=== PATIENT | male | born 1960 | race Caucasian/White ===

== ENCOUNTER 2022-03-21 09:35 | Emergency (ER) | payer BC, SELFPAY ==
--- NOTE | 2022-03-21 | ECG_ITS ---
Test Reason : chest pain Blood Pressure : / mmHG Vent. Rate : 088 BPM Atrial Rate : 088 BPM P-R Int : 136 ms QRS Dur : 090 ms QT Int : 416 ms P-R-T Axes : 058 008 061 degrees QTc Int : 503 ms Normal sinus rhythm Anterior infarct , age undetermined Prolonged QT Abnormal ECG No previous ECGs available Referred By: Generic ED Physician Electronically Signed By:Jose Martin Arango
--- NOTE | ~2022-03-21 | XR_ITS ---
EXAMINATION: XR CHEST CLINICAL INFORMATION: Chest pain and dyspnea. COMPARISON: None TECHNIQUE: Frontal view of the chest was obtained. FINDINGS: Mild prominence of pulmonary vascular and interstitial markings with asymmetric increased markings in the right infrahilar region. The heart and mediastinal structures are unremarkable. XR/XR chest 1V IMPRESSION: Asymmetric increased markings in right parietal region suggesting atelectasis/infiltrate. Mild underlying congestion cannot be excluded.
[2022-03-21 09:42] VITALS: BP 118/77; PULSE 91; RESP 20; TEMP 36.7; O2SAT 95; BMI 29.0
[2022-03-21 10:14] VITALS: BP 117/76; PULSE 98; RESP 22; O2SAT 97
[2022-03-21 10:20] LABS: MANUAL DIFF FLAG NO
[2022-03-21 10:23] LABS: Basophils Absolute Auto 0.1 X10*3/uL (0.0-0.2); Basophils Percent Auto 0.8 % (0-2); Eosinophils Absolute Auto 0.2 X10*3/uL (0.0-0.4); Hematocrit 38.8 % (42.0-52.0); Imm Gran Abs Auto 0.01 X10*3/uL (0.00-0.03); Imm Gran Pct Auto 0.1 % (0.0-0.4); Lymphocytes Absolute Auto 1.6 X10*3/uL (1.2-4.9); Lymphocytes Percent Auto 20.8 % (20-40); Mean Corpuscular HGB Conc 33.5 g/dl (31.0-36.0); Mean Corpuscular Hemoglobin 30.6 pg (27.0-33.0); Mean Corpuscular Volume 91.3 fL (80.0-98.0); Monocytes Absolute Auto 0.7 X10*3/uL (0.1-1.2); Monocytes Percent Auto 8.7 % (2-11); Neutrophils Absolute Auto 5.1 x10*3/uL (2.0-8.3); Neutrophils Percent Auto 66.6 % (45-73); Platelet Count 158 X10*3/uL (160-400); Red Blood Count 4.25 X10*6/uL (4.60-5.80); Red Cell Distribution Width 13.8 % (11.0-16.0); White Blood Count 7.7 X10*3/uL (4.8-10.8)
[2022-03-21 10:38] LABS: Anion Gap 11 (12-20); Blood Urea Nitrogen 12 mg/dL (9-16); Calcium 9.1 mg/dL (8.4-10.2); Carbon Dioxide 24 mmol/L (22-29); Chloride 109 mmol/L (96-108); Creatinine Clr Calc Pharmacy 109.2; Estimated Glomerular Filt Rate > 60; Glucose Random 94 mg/dL (60-115); Potassium 4.3 mmol/L (3.3-5.1); Sodium 140 mmol/L (135-145)
[2022-03-21 10:46] LABS: Troponin-I High Sensitivity 13.3 ng/L (<3.5-35.0)
[2022-03-21 10:53] VITALS: BP 112/80; PULSE 82; RESP 20; O2SAT 97
--- NOTE | 2022-03-21 11:03 | ED_ITS ---
HPI - Chest Pain General Chief Complaint: Chest Pain Stated Complaint: diff breathing; chest pain Time Seen by Provider: 03/21/22 11:00 Source: patient Mode of arrival: ambulatory Limitations: no limitations History of Present Illness HPI narrative: 61-year-old male came in for evaluation of shortness of breath and chest pain for 3 days. Been having shortness of breath and coughing with green sputum, no fever or chills, no sick contact patient work in the [employer] 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 No fever, no chills, no lower extremity swelling or tenderness. Related Data Previous Rx's Medication Instructions Recorded albuterol sulfate 90 mcg/actuation 2 inh inhalation Q6H PRN shortness 03/21/22 breath activated powder inhaler of breath or wheezing #1 ea levofloxacin 750 mg tablet 750 mg PO DAILY #7 tabs 03/21/22 prednisone 20 mg tablet 20 mg PO BID #10 tabs 03/21/22 Allergies Allergy/AdvReac Type Severity Reaction Status Date / Time No Known Allergies Allergy Verified 03/21/22 09:45 Review of Systems Review of Systems: All other systems are reviewed and are negative Constitutional: Reports as per HPI and Reports no additional constitutional complaints Eyes: Reports as per HPI and Reports no additional eye complaints Reports system reviewed and no additional complaints, except as documented Cardiovascular: Reports as per HPI and Reports no additional cardiovascular comp laints Respiratory: Reports as per HPI and Reports no additional respiratory complaints Gastrointestinal: Reports as per HPI and Reports no additional gastrointestinal complaints Genitourinary: Reports no additional female genitourinary complaints Musculoskeletal: Reports no additional musculoskeletal complaints Skin/Breast: Reports system reviewed and no additional complaints, except as docu Psychiatric: Reports no additional psychiatric complaints Endocrine: Reports no additional endocrine complaints Hematologic/Lymphatic: Reports no additional hematologic/lymphatic complaints Allergic/Immunologic: Reports no additional allergic/immunologic complaints Reports system reviewed and no additional complaints, except as documented and Reports Abnormal speech present PMFSH Social History Social History Advance Directives: No Advance Directives Information Provided: No Physical Exam Vital Signs: Vital Signs: Last Vital Signs Temp 98.0 F 03/21/22 09:42 Pulse 86 03/21/22 12:16 Resp 12 03/21/22 12:16 BP 108/71 03/21/22 12:16 Pulse Ox 100 03/21/22 12:16 O2 Del Method 03/21/22 12:16 BMI result Body Mass Index 29.0 Vital signs have been reviewed as appeared to be correct. Blood pressure normal. Heart rate normal. Respiration rate normal. Temperature normal. Oxygen saturation normal. Appearance: Alert. Oriented X3. No acute distress. Head: Normal external exam. Normocephalic. Atraumatic. No Piña signs noted. No raccoon eyes noted Eyes: PERRLA. EOMI. Conjunctiva and sclera normal. Eyelids normal. ENT: TM's Normal. Pharynx normal. Uvula midline. Moist mucous membranes. No trismus noted. No drooling noted. No muffled voice noted. Neck: Normal inspection. Neck supple. FROM. No adenopathy. Thyroid Normal. No meningeal signs. No neck mass noted. CVS: Normal heart rate and rhythm. Heart sound normal. No murmurs noted. Pulses normal throughout. Respiratory: No respiratory distress. Painless inspiration. Breath sounds normal. Prolonged expiration with mild diffuse expiratory wheezing. Chest nontender. No accessory muscle usage noted or decreased air movement noted. Abdomen: Soft and nontender. Bowel sounds normal in all 4 quadrants. No distention noted. No organomegaly noted. No visible injury noted. Back: No CVA tenderness. Full range of motion noted. Skin: Skin warm and dry. Normal skin color. Normal skin turgor. No rashes/lesions/lacerations noted. Extremities: No lower extremity edema. Extremities exhibit normal range of motion. Extremities nontender. Neuro: Oriented X 3. Cranial nerve exam: II-XII are grossly intact No motor deficit. No sensory deficit. Reflexes normal. Course Course Course Narrative: 61 years old male long history of smoking came in with coughing, physical exam and blood workup today is consistent with acute bronchitis. Patient feels better with bronchodilator on prednisone, will add Levaquin course for 7 days for possible bronchopneumonia. Patient was educated about quitting smoking. MDM - Chest Pain Lab Data Attestation: I reviewed the patient's lab results. Result diagrams: 03/21/22 10:13 03/21/22 10:13 Labs: Lab Results 03/21/22 03/21/22 03/21/22 Range/Units 10:13 10:13 10:13 WBC 7.7 (4.8-10.8) X10*3/uL RBC 4.25 L (4.60-5.80) X10*6/uL Hgb 13.0 L (14.0-18.0) g/dl Hct 38.8 L (42.0-52.0) % MCV 91.3 (80.0-98.0) fL MCH 30.6 (27.0-33.0) pg MCHC 33.5 (31.0-36.0) g/dl RDW 13.8 (11.0-16.0) % Plt Count 158 L (160-400) X10*3/uL MPV 10.0 (9.4-12.4) fL Immature Gran % (Auto) 0.1 (0.0-0.4) % Neut % (Auto) 66.6 (45-73) % Lymph % (Auto) 20.8 (20-40) % Mcculloch % (Auto) 8.7 (2-11) % Eos % (Auto) 3.0 (0-4) % Baso % (Auto) 0.8 (0-2) % Lymph # (Auto) 1.6 (1.2-4.9) X10*3/uL Mcculloch # (Auto) 0.7 (0.1-1.2) X10*3/uL Eos # (Auto) 0.2 (0.0-0.4) X10*3/uL Baso # (Auto) 0.1 (0.0-0.2) X10*3/uL Abs Immat Gran (auto) 0.01 (0.00-0.03) X10*3/uL Absolute Neuts (auto) 5.1 (2.0-8.3) x10*3/uL Absolute Nucleated RBC 0.000 (0.0-0.012) X10*3/uL Nucleated RBC % (auto) 0.0 (0.0-0.2) /100WBC Sodium 140 (135-145) mmol/L Potassium 4.3 (3.3-5.1) mmol/L Chloride 109 H (96-108) mmol/L Carbon Dioxide 24 (22-29) mmol/L Anion Gap 11 L (12-20) BUN 12 (9-16) mg/dL Creatinine 0.86 (0.5-1.4) mg/dL Estim Creat Clear Calc 109.2 Estimated GFR > 60 Random Glucose 94 (60-115) mg/dL Lactic Acid (0.5-2.0) mmol/L Calcium 9.1 (8.4-10.2) mg/dL Troponin I High Sens 13.3 (<3.5-35.0) ng/L B-Natriuretic Peptide 372 H (<100) pg/mL 03/21/22 Range/Units 11:26 WBC (4.8-10.8) X10*3/uL RBC (4.60-5.80) X10*6/uL Hgb (14.0-18.0) g/dl Hct (42.0-52.0) % MCV (80.0-98.0) fL MCH (27.0-33.0) pg MCHC (31.0-36.0) g/dl RDW (11.0-16.0) % Plt Count (160-400) X10*3/uL MPV (9.4-12.4) fL Immature Gran % (Auto) (0.0-0.4) % Neut % (Auto) (45-73) % Lymph % (Auto) (20-40) % Mcculloch % (Auto) (2-11) % Eos % (Auto) (0-4) % Baso % (Auto) (0-2) % Lymph # (Auto) (1.2-4.9) X10*3/uL Mcculloch # (Auto) (0.1-1.2) X10*3/uL Eos # (Auto) (0.0-0.4) X10*3/uL Baso # (Auto) (0.0-0.2) X10*3/uL Abs Immat Gran (auto) (0.00-0.03) X10*3/uL Absolute Neuts (auto) (2.0-8.3) x10*3/uL Absolute Nucleated RBC (0.0-0.012) X10*3/uL Nucleated RBC % (auto) (0.0-0.2) /100WBC Sodium (135-145) mmol/L Potassium (3.3-5.1) mmol/L Chloride (96-108) mmol/L Carbon Dioxide (22-29) mmol/L Anion Gap (12-20) BUN (9-16) mg/dL Creatinine (0.5-1.4) mg/dL Estim Creat Clear Calc Estimated GFR Random Glucose (60-115) mg/dL Lactic Acid 0.9 (0.5-2.0) mmol/L Calcium (8.4-10.2) mg/dL Troponin I High Sens (<3.5-35.0) ng/L B-Natriuretic Peptide (<100) pg/mL Imaging Data Chest x-ray: Attestation: I personally reviewed and interpreted this imaging study as follows: Radiologist's impression: Asymmetric increased markings in right parietal region suggesting atelectasis/infiltrate. Mild underlying congestion cannot be excluded. ? ECG Data ECG #1: Attestation: I personally reviewed and interpreted this ECG as follows: Interpretation: Normal sinus rhythm at 88 beats per minute, normal axis deviation, QT p rolongation otherwise unremarkable intervals, nonspecific T-wave inversion in V6,III,aVF. Discharge Plan Discharge Clinical Impression: Bronchopneumonia Patient Disposition: Home, Self-Care Instructions: Pneumonia (ED) Prescriptions: New prednisone 20 mg tablet 20 mg PO BID Qty: 10 0RF albuterol sulfate 90 mcg/actuation aerosol powdr breath activated 2 inh inhalation Q6H PRN (Reason: shortness of breath or wheezing) Qty: 1 0RF levofloxacin 750 mg tablet 750 mg PO DAILY Qty: 7 0RF Referrals: Dorcas Benites MD [Primary Care Provider] - Stand Alone Forms: Work/School Release
[2022-03-21] MEDS: Albuterol/Iprat 2.5/0.5MG 3 ML AMPUL.NEB INHALE (11:12)
[2022-03-21] MEDS: Albuterol Sulfate (0.083%) 2.5 MG/3 ML VIAL.NEB 5 MG INHALE (11:12)
[2022-03-21 11:16] VITALS: PULSE 82; RESP 16; O2SAT 97
[2022-03-21] MEDS: predniSONE 20 MG TABLET 40 MG PO (11:27)
[2022-03-21] MEDS: levoFLOXacin 750 MG TABLET PO (11:27)
[2022-03-21 11:29] LABS: B Type Natriuretic Peptide 372 pg/mL (<100)
[2022-03-21 11:52] LABS: Lactic Acid 0.9 mmol/L (0.5-2.0)
[2022-03-21 12:16] VITALS: BP 108/71; PULSE 86; RESP 12; O2SAT 100
== END 2022-03-21 13:17 | disposition home or self-care (01) ==
PROVIDERS: Emergency Provider Emergency Medicine; PCP Family Medicine
DX: J18.0 Bronchopneumonia, unspecified organism (principal); Z87.891 Personal history of nicotine dependence
CPT/HCPCS: 36415; 71045; 80048; 83605; 83880; 84484; 85025; 87040; 93005; 94640; 94644; 99283; 99284

== ENCOUNTER 2022-12-19 09:09 | Inpatient (IN) | payer BC, SELFPAY ==
[2022-12-19] VITALS (8 sets, daily range): BP systolic 113–136; BP diastolic 76–83; PULSE 85–95; RESP 18–32; TEMP 36.3–36.6; O2SAT 95–100; BMI 24.6; BMI 24.2
--- NOTE | ~2022-12-19 | CT_ITS ---
EXAMINATION: CT chest wo IV con. CLINICAL INFORMATION: Reason for Exam ? chf vs pneumonia COMPARISON: No prior CT available for comparison. TECHNIQUE: Multidetector volumetric CT imaging of the chest was done. Axial MIP volume rendering provided. Sagittal and coronal reformatted images were obtained. This CT examination was performed using dose optimization techniques as appropriate, variously including the following: *Automated exposure control *Adjustment of mA and/or kV according to patient size (this includes techniques or standardized protocols for targeted exams where dose is matched to indication/reason for exam; i.e. extremities or head) *Use of iterative reconstruction technique CONTRAST: Noncontrasted study. DLP: 345 mGy-cm FINDINGS: BASTING PULLER: LINES/TUBES: Transit Specialist reviewed, no lines. LUNGS: Lung parenchyma: There is a prominence of the pulmonary vasculature. Mild central and peripheral paraseptal emphysema. This has involved upper more than lower lobes. There is compression atelectasis at lower lobe due to adjacent pleural effusions right more than left. Lung nodules/masses: There are no significant lung nodules. AIRWAYS: Trachea and bronchi are normal. PLEURA: Bilateral pleural effusions right more than left. MEDIASTINUM AND BLAISE: Mildly prominent mediastinal lymph nodes some of which are borderline enlarged, pretracheal lymph node is 1.4 x 2 cm could be reactive. No mediastinal mass. VESSELS: HEART AND PERICARDIUM: Thoracic aorta is normal in size. Heart is normal in size. No pericardial effusion. There are few coronary calcifications. Pulmonary arteries are normal in size. LOWER NECK, AXILLA: The visualized thyroid gland is unremarkable. No axillary mass or adenopathy. VISUALIZED ABDOMEN: Unremarkable CHEST WALL AND BONES: No chest wall mass. The visualized bony thorax is within normal limits. CT/CT chest wo IV con IMPRESSION: * Bilateral pleural effusions right more than left. * Compressive atelectasis at lower lobes due to adjacent pleural effusions right more than left. * Mild pulmonary vascular congestion. * Mild foote lobar central and peripheral paraseptal emphysema. * Mildly prominent mediastinal lymph nodes some of which are borderline enlarged, could be reactive. * Mild coronary calcification.
--- NOTE | ~2022-12-19 | XR_ITS ---
EXAMINATION: XR CHEST CLINICAL INFORMATION: Question pneumonia COMPARISON: X-ray 03/21/2022 TECHNIQUE: Frontal view of the chest was obtained. FINDINGS: Stable cardiac and mediastinal silhouette. Stable central vascular prominence. There is increased interstitial markings, with hazy airspace opacities in the right infrahilar region and right lower lung. No significant effusion. XR/XR chest 1V IMPRESSION: Findings in the right infrahilar region and right lower lung, concerning for atelectasis/infiltrate. Component of mild asymmetric pulmonary edema cannot be excluded.
--- OUTSIDE RECORDS SUMMARY | 2022-12-19 09:29 | XMS_ITS | Continuity of Care Document ---
:1960 Author Organization [facility] Address [address] [place] [id number] Care Team Providers Name Role Phone Ector VAZQUEZ, Bennett Cuenca Primary Care Physician Encounter [facility] Date(s): 10/10/21 - 11/15/[address] [id number] Attending Physician: Solitario eMndoza MD Admitting Physician: Solitario Mendoza MD Referring Physician: Solitario Mendoza MD
--- NOTE | 2022-12-19 09:44 | ECG_ITS ---
Test Reason : SOB Blood Pressure : / mmHG Vent. Rate : 088 BPM Atrial Rate : 088 BPM P-R Int : 146 ms QRS Dur : 082 ms QT Int : 368 ms P-R-T Axes : 076 -31 098 degrees QTc Int : 445 ms Artifact in tracing Sinus rhythm with occasional Premature ventricular complexes Left axis deviation Low voltage QRS Cannot rule out Anterior infarct (cited on or before 21-MAR-2022) Abnormal ECG When compared with ECG of 21-MAR-2022 09:37, Premature ventricular complexes are now Present QT has shortened Referred By: Zoltan Hernandez Electronically Signed By:JOSE DE JESUS HOGAN
--- NOTE | 2022-12-19 09:45 | PC.NURSE ---
assumed care of patient, pt pw SOB x3 days and inability to sleep for 2 days. pt was recently dx with PNA and fiinished antibiotics. pt satting 98% on RA, VSS.
--- NOTE | 2022-12-19 10:00 | PC.NURSE ---
Labs drawn and sent, EKG done, PA at bedside
--- NOTE | 2022-12-19 10:17 | ED_ITS ---
HPI - General Adult General Chief complaint: Dyspnea Stated complaint: Diff breathing Time Seen by Provider: 12/19/22 09:44 Source: patient Mode of arrival: ambulatory Limitations: no limitations History of Present Illness HPI narrative: 62-year-old male with history of high cholesterol presents to the ED for sh ortness of breath on exertion the past 3 weeks. Patient states 3 weeks ago he was diagnosed as pneumonia and since then he has been having shortness of breath with chest tightness. patient denies chest pain, leg swelling, calf pain, coughing up blood, recent long travel, recent surgery, fever, history of blood clots, estrigeb ysed or chills. Patient cough is dry. Related Data Home Medications Medication Instructions Recorded Confirmed atorvastatin 40 mg tablet 1 tab PO DAILY 12/19/22 12/19/22 guaifenesin 1,200 mg tablet, 1,200 mg PO Q12H PRN 12/19/22 12/19/22 extended release 12 hr (Mucinex) Cough/congestion Previous Rx's Medication Instructions Recorded albuterol sulfate 90 mcg/actuation 2 inh inhalation Q6H PRN shortness 03/21/22 breath activated powder inhaler of breath or wheezing #1 ea Allergies Allergy/AdvReac Type Severity Reaction Status Date / Time No Known Allergies Allergy Verified 12/19/22 09:17 Review of Systems Review of Systems: shortness of breath Yes all other systems are reviewed and are negative [facility] Past Medical History Medical History (Updated 12/19/22 @ 14:56 by SEBASTIAN Akers) Seizure Social History Social History Advance Directives: Yes Advance Directives Information Provided: No Advance Directives on File: No Physical Exam ED Vital Signs: Vital Signs - 24 hr 12/19/22 09:12 12/19/22 10:43 12/19/22 11:51 Pulse Rate 85 85 86 Respiratory Rate 18 32 H Blood Pressure 122/81 113/76 Pulse Oximetry 97 95 Oxygen Delivery Method Room Air Room Air BMI result Body Mass Index 24.6 Const General: cooperative, healthy appearing, comfortable, no acute distress, well developed, alert, awake and Physically active Orientation/consciousness: oriented to person, oriented to place, oriented to time and patient oriented x3 HENMT Head: Yes normal to inspection, Yes No palpable skull fracture present, Yes normocephalic, Yes atraumatic and No abrasion Eyes General: appearance normal, both eyes and all related structures Neck Neck: Yes normal visual inspection, Yes full ROM, Yes no lymphadenopathy, Yes no meningeal signs, Yes trachea midline, Yes supple, No anterior neck swelling and No tender Chest Chest palpation & inspection: normal inspection of the chest and normal palpation of entire chest wall Resp Effort & Inspection: normal respiratory effort and able to speak in complete sentences Auscultation: clear to auscultation bilaterally Cardio Jugular venous distension: no JVD Heart sounds: S1 normal heart sound present and S2 normal heart sound present GI Inspection: Yes normal to inspection and No abdominal wall ecchymosis Palpation (GI): Soft to palpation, not firm, nontender, no guarding and not rigid General: No CVA tenderness and Yes no CVA tenderness Back/Spine/Pelvis Back: no CVA tenderness, No CVA tenderness and No back tenderness Skin General skin exam: no rashes or lesions noted and elasticity normal Neuro General: oriented to person, oriented to place, oriented to time, patient oriented x3, gait normal, tone normal, moves all extremities, Normal light touch and pain sensation, no meningeal signs, no focal motor deficits and CN's II-XI intact bilaterally Extrem Other: a bilateral lower extremities negative for swelling, pitting edema, or calf tenderness General: Yes normal to inspection and Yes full ROM Psych Appearance: grossly normal, well kempt and not disheveled Course Course Course Narrative: patient vital signs stable but due to AH with cardiac evaluation which include EKG troponin BMP coags and chest x-ray. SARS ordered Reevaluation(s) Reevaluation #1: patient's BNP came back over 1000 which is new. chest x-ray shows pulmonary edema versus pneumonia. O2 saturation above 97% on ambulation but patient still so short of breath on exertion. patient received Lasix. Patient admitted to the hospital for new onset congestive heart failure. Time: 14:49 Reevaluation #2: Dr. Feliz WIll treat patient as CHF exacerbation Time: 15:00 Medications Administered Generic Name Dose Route Start Last Admin Trade Name Freq PRN Reason Stop Dose Admin Enoxaparin Sodium 40 mg 12/19/22 14:00 12/19/22 13:39 Enoxaparin Sodium 40 Mg/0.4 Ml Syringe SUBCUT Not Given Q24H BIENVENIDO Sodium Chloride 3 ml 12/19/22 16:00 12/19/22 13:39 0.9 % Sodium Chloride Flush 3 Ml Syringe IVFLUSH 3 ml QSHIFT BIENVENIDO Administration Discontinued Medications Generic Name Dose Route Start Last Admin Trade Name Ana Maria PRN Reason Stop Dose Admin Albuterol Sulfate 2.5 mg 12/19/22 09:59 12/19/22 11:49 Albuterol Sulfate (0.083%) 2.5 Mg/3 Ml Vial.Neb INHALE 12/19/22 10:00 2.5 mg ONCE ONE Administration Furosemide 40 mg 12/19/22 10:51 12/19/22 10:57 Furosemide 40 Mg/4 Ml Vial IVPUSH 12/19/22 10:52 40 mg STAT STA Administration Protocol Nicotine 21 mg 12/19/22 13:37 12/19/22 13:39 Nicotine 21 Mg Patch.[id number] TRANSDERMA 12/19/22 13:38 21 mg ONCE ONE Administration Medical Decision Making Medical Decision Making MDM Narrative: 62 year yold male with past medical history of cholesterol presents to ED for shortness of breath on exertion for 3 weeks. Patient recently treated for pneumonia 3 weeks ago but still having symptoms. Patient had cardiac evaluation. Differential Diagnosis Differential Diagnoses: The differential diagnosis associated with the presentation includes ( Congestive heart failure, myocardial infarction, pneumonia,) Admission/Observation Consideration of admission/observation: Escalation of care including admiss ion/observation considered Consult Healthcare Provider Management of the patient was discussed with: Hospitalist (Dr. Feliz) Lab Data 12/19/22 09:52 12/19/22 09:52 Labs: Lab Results 12/19/22 12/19/22 12/19/22 Range/Units 09:52 09:52 09:52 WBC (4.8-10.8) X10*3/uL RBC (4.60-5.80) X10*6/uL Hgb (14.0-18.0) g/dl Hct (42.0-52.0) % MCV (80.0-98.0) fL MCH (27.0-33.0) pg MCHC (31.0-36.0) g/dl RDW (11.0-16.0) % Plt Count (160-400) X10*3/uL MPV (9.4-12.4) fL Immature Gran % (Auto) (0.0-0.4) % Neut % (Auto) (45-73) % Lymph % (Auto) (20-40) % Brantley % (Auto) (2-11) % Eos % (Auto) (0-4) % Baso % (Auto) (0-2) % Lymph # (Auto) (1.2-4.9) X10*3/uL Brantley # (Auto) (0.1-1.2) X10*3/uL Eos # (Auto) (0.0-0.4) X10*3/uL Baso # (Auto) (0.0-0.2) X10*3/uL Abs Immat Gran (auto) (0.00-0.03) X10*3/uL Absolute Neuts (auto) (2.0-8.3) x10*3/uL Absolute Nucleated RBC (0.0-0.012) X10*3/uL Nucleated RBC % (auto) (0.0-0.2) /100WBC PT (10.0-13.1) SEC INR (0.9-1.1) APTT (26.0-36.4) SEC Sodium 140 (135-145) mmol/L Potassium 4.8 (3.3-5.1) mmol/L Chloride 112 H (96-108) mmol/L Carbon Dioxide 20 L (22-29) mmol/L Anion Gap 13 (12-20) BUN 17 H (9-16) mg/dL Creatinine 0.90 (0.5-1.4) mg/dL Estim Creat Clear Calc 93.7 Estimated GFR > 60 Random Glucose 101 (60-115) mg/dL Calcium 8.9 (8.4-10.2) mg/dL Total Bilirubin 1.4 H (0.0-1.0) mg/dL AST 50 H (5-37) U/L ALT 118 H (0-40) U/L Alkaline Phosphatase 101 (39-117) U/L Troponin I High Sens 18.1 (<3.5-35.0) ng/L B-Natriuretic Peptide 1284 H (<100) pg/mL Total Protein 6.2 L (6.5-8.0) g/dL Albumin 4.0 (3.5-5.0) g/dL Procalcitonin 0.03 ng/mL Influenza Type A (PCR) (Negative) Influenza Type B (PCR) (Negative) RSV RNA Qual (PCR) (Negative) SARS-CoV-2 RNA (RT-PCR) (Negative) 12/19/22 12/19/22 12/19/22 Range/Units 10:57 10:57 10:57 WBC 7.6 (4.8-10.8) X10*3/uL RBC 4.24 L (4.60-5.80) X10*6/uL Hgb 13.5 L (14.0-18.0) g/dl Hct 39.8 L (42.0-52.0) % MCV 93.9 (80.0-98.0) fL MCH 31.8 (27.0-33.0) pg MCHC 33.9 (31.0-36.0) g/dl RDW 14.2 (11.0-16.0) % Plt Count 110 L D (160-400) X10*3/uL MPV 11.0 (9.4-12.4) fL Immature Gran % (Auto) 0.3 (0.0-0.4) % Neut % (Auto) 63.2 (45-73) % Lymph % (Auto) 25.2 (20-40) % Brantley % (Auto) 8.7 (2-11) % Eos % (Auto) 1.7 (0-4) % Baso % (Auto) 0.9 (0-2) % Lymph # (Auto) 1.9 (1.2-4.9) X10*3/uL Brantley # (Auto) 0.7 (0.1-1.2) X10*3/uL Eos # (Auto) 0.1 (0.0-0.4) X10*3/uL Baso # (Auto) 0.1 (0.0-0.2) X10*3/uL Abs Immat Gran (auto) 0.02 (0.00-0.03) X10*3/uL Absolute Neuts (auto) 4.8 (2.0-8.3) x10*3/uL Absolute Nucleated RBC 0.000 (0.0-0.012) X10*3/uL Nucleated RBC % (auto) 0.0 (0.0-0.2) /100WBC PT 15.2 H (10.0-13.1) SEC INR 1.3 H (0.9-1.1) APTT 31.2 (26.0-36.4) SEC Sodium (135-145) mmol/L Potassium (3.3-5.1) mmol/L Chloride (96-108) mmol/L Carbon Dioxide (22-29) mmol/L Anion Gap (12-20) BUN (9-16) mg/dL Creatinine (0.5-1.4) mg/dL Estim Creat Clear Calc Estimated GFR Random Glucose (60-115) mg/dL Calcium (8.4-10.2) mg/dL Total Bilirubin (0.0-1.0) mg/dL AST (5-37) U/L ALT (0-40) U/L Alkaline Phosphatase (39-117) U/L Troponin I High Sens (<3.5-35.0) ng/L B-Natriuretic Peptide (<100) pg/mL Total Protein (6.5-8.0) g/dL Albumin (3.5-5.0) g/dL Procalcitonin ng/mL Influenza Type A (PCR) NEGATIVE (Negative) Influenza Type B (PCR) NEGATIVE (Negative) RSV RNA Qual (PCR) NEGATIVE (Negative) SARS-CoV-2 RNA (RT-PCR) NEGATIVE (Negative) Independent Interpretation I performed an independent interpretation of an: EKG ( sinus rhythm with PVCs. Ventricular rate 88 DE interval 146. QRS 82. QTC 445. Negative STEMI) and Plain X-Ray Discharge Plan Discharge Clinical Impression: Acute CHF Patient Disposition: Admitted As Inpatient
[2022-12-19 10:20] LABS: Alanine Aminotransferase 118 U/L (0-40); Alkaline Phosphatase 101 U/L (39-117); Anion Gap 13 (12-20); Aspartate Amino Transferase 50 U/L (5-37); Bilirubin Total 1.4 mg/dL (0.0-1.0); Blood Urea Nitrogen 17 mg/dL (9-16); Calcium 8.9 mg/dL (8.4-10.2); Carbon Dioxide 20 mmol/L (22-29); Chloride 112 mmol/L (96-108); Creatinine Clr Calc Pharmacy 93.7; Estimated Glomerular Filt Rate > 60; Glucose Random 101 mg/dL (60-115); Potassium 4.8 mmol/L (3.3-5.1); Sodium 140 mmol/L (135-145); Total Protein 6.2 g/dL (6.5-8.0)
[2022-12-19 10:23] LABS: B Type Natriuretic Peptide 1284 pg/mL (<100)
[2022-12-19 10:27] LABS: Troponin-I High Sensitivity 18.1 ng/L (<3.5-35.0)
[2022-12-19] MEDS: Furosemide 40 MG/4 ML VIAL IVPUSH (10:57)
[2022-12-19 11:10] LABS: Basophils Absolute Auto 0.1 X10*3/uL (0.0-0.2); Basophils Percent Auto 0.9 % (0-2); Eosinophils Absolute Auto 0.1 X10*3/uL (0.0-0.4); Eosinophils Percent Auto 1.7 % (0-4); Hematocrit 39.8 % (42.0-52.0); Hemoglobin 13.5 g/dl (14.0-18.0); Imm Gran Abs Auto 0.02 X10*3/uL (0.00-0.03); Imm Gran Pct Auto 0.3 % (0.0-0.4); Lymphocytes Absolute Auto 1.9 X10*3/uL (1.2-4.9); Lymphocytes Percent Auto 25.2 % (20-40); Mean Corpuscular HGB Conc 33.9 g/dl (31.0-36.0); Mean Corpuscular Hemoglobin 31.8 pg (27.0-33.0); Mean Corpuscular Volume 93.9 fL (80.0-98.0); Monocytes Absolute Auto 0.7 X10*3/uL (0.1-1.2); Monocytes Percent Auto 8.7 % (2-11); Neutrophils Absolute Auto 4.8 x10*3/uL (2.0-8.3); Neutrophils Percent Auto 63.2 % (45-73); Platelet Count 110 X10*3/uL (160-400); Red Blood Count 4.24 X10*6/uL (4.60-5.80); Red Cell Distribution Width 14.2 % (11.0-16.0); White Blood Count 7.6 X10*3/uL (4.8-10.8)
[2022-12-19 11:11] LABS: INTERNATIONAL NORM RATIO 1.3 (0.9-1.1); Prothrombin Time 15.2 SEC (10.0-13.1)
[2022-12-19 11:14] LABS: Partial Thromboplastin Time 31.2 SEC (26.0-36.4)
[2022-12-19] MEDS: Albuterol Sulfate (0.083%) 2.5 MG/3 ML VIAL.NEB INHALE (11:49)
[2022-12-19 11:54] LABS: Influenza A PCR NEGATIVE (Negative); Influenza B PCR NEGATIVE (Negative); Resp Syncy Virus RNA Qual PCR NEGATIVE (Negative); SARS COV2 PCR INHOUSE NEGATIVE (Negative)
--- NOTE | 2022-12-19 12:04 | PC.NURSE ---
pt ambulatory sat 98-100%
--- NOTE | 2022-12-19 12:47 | P.HPHOSP_ITS ---
History of Present Illness Date of Service: 12/19/22 Attending physician on admission: Marike Jacobs Chief Complaint: SOB Pt is a 62-year-old male with a PMH significant for?HLD and possible seizure in 2013 who presents to the ED with?increasing SOB with exertion and at rest. Pt's symptoms began 3-4 weeks ago with mostly non-productive cough and SOB. Was diagnosed with pneumonia and prescribed albuterol, levofloxacin, and prednisone. Completed all medications as prescribed. 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 Cough still mostly non-productive. Has chest tightness, mostly associated with coughing and breathing deeply. No lower leg edema. Patient denies fever, chills, nausea, vomiting, diarrhea, abdominal pain. Denies orthopnea, but states he sometimes feels discomfort in his back and/or abdomen when he lays down in just the right position. Pt denies hx of CHF or heart problems. Of note, pt is a current smoker with a 50+ pack-year history of smoking. In the ED patient was afebrile, tachypneic up to 32, satting at 97% on RA. Labs were significant for WBC WNL, platelets of 110, total bilirubin of 1.4, AST 50, ALT 118, BNP elevated at 12 84. CXR showed opacities in the infrahilar region and right lower lung concerning for atelectasis/infiltrate, and possible asymmetric pulmonary edema. EKG demonstrated sinus rhythm with PVCs. Pt was treated with furosemide 40 mg and albuterol. Pt will be admitted to the hospital for treatment and further evaluation of new-onset CHF. Review of Systems Review of Systems: Shortness of breath with exertion and at rest Mostly nonproductive cough Chest tightness Denies lower leg edema No fever, chills, nausea, vomiting, diarrhea Yes all other systems are reviewed and are negative [facility] Medical History (Updated 12/19/22 @ 13:54 by SEBASTIAN King) Seizure Social History Advance Directives: Yes Advance Directives Information Provided: No Advance Directives on File: No Meds Allergies Allergy/AdvReac Type Severity Reaction Status Date / Time No Known Allergies Allergy Verified 12/19/22 09:17 Physical Exam Vital Signs and Narrative: Vital Signs: Last Vital Signs Pulse 86 12/19/22 11:51 Resp 32 H 12/19/22 10:43 BP 113/76 12/19/22 10:43 Pulse Ox 95 12/19/22 10:43 O2 Del Method 12/19/22 10:43 BMI result Body Mass Index 24.6 Constitutional: Alert, in no acute distress. Mental Status: Oriented to person, place and time. Eyes: Pupils are equal, round, and reactive to light. Ear, Nose, and Throat: Oropharynx clear, mucous membranes moist. Ears and nose without deformities. Trachea midline. Respiratory: Diffuse inspiratory and expiratory rhonchi. Cardiovascular: S1, S2 regular. No murmurs, rubs, or gallops. Gastrointestinal: Abdomen soft, non-tender, non-distended. Normal bowel sounds. Neurologic: Cranial nerves II-XII are grossly intact bilaterally. No focal neurological deficits. Moves all extremities spontaneously. Skin: No rashes or lesions noted. Musculoskeletal: No cyanosis or clubbing. Extremities: No edema. Psychiatric: Normal mood and affect. Results Labs 12/19/22 10:57 12/19/22 09:52 Labs: Laboratory Results - last 24 hr 12/19/22 12/19/22 12/19/22 09:52 09:52 09:52 MCV MCH MCHC RDW Plt Count MPV Immature Gran % (Auto) Neut % (Auto) Lymph % (Auto) [place] % (Auto) Eos % (Auto) Baso % (Auto) Lymph # (Auto) [place] # (Auto) Eos # (Auto) Baso # (Auto) Abs Immat Gran (auto) Absolute Neuts (auto) Absolute Nucleated RBC Nucleated RBC % (auto) PT INR APTT Anion Gap 13 Estim Creat Clear Calc 93.7 Estimated GFR > 60 Random Glucose 101 Calcium 8.9 Total Bilirubin 1.4 H AST 50 H ALT 118 H Alkaline Phosphatase 101 Troponin I High Sens 18.1 B-Natriuretic Peptide 1284 H Total Protein 6.2 L Albumin 4.0 Influenza Type A (PCR) Influenza Type B (PCR) RSV RNA Qual (PCR) SARS-CoV-2 RNA (RT-PCR) 12/19/22 12/19/22 12/19/22 10:57 10:57 10:57 MCV 93.9 MCH 31.8 MCHC 33.9 RDW 14.2 Plt Count 110 L D MPV 11.0 Immature Gran % (Auto) 0.3 Neut % (Auto) 63.2 Lymph % (Auto) 25.2 [place] % (Auto) 8.7 Eos % (Auto) 1.7 Baso % (Auto) 0.9 Lymph # (Auto) 1.9 [place] # (Auto) 0.7 Eos # (Auto) 0.1 Baso # (Auto) 0.1 Abs Immat Gran (auto) 0.02 Absolute Neuts (auto) 4.8 Absolute Nucleated RBC 0.000 Nucleated RBC % (auto) 0.0 PT 15.2 H INR 1.3 H APTT 31.2 Anion Gap Estim Creat Clear Calc Estimated GFR Random Glucose Calcium Total Bilirubin AST ALT Alkaline Phosphatase Troponin I High Sens B-Natriuretic Peptide Total Protein Albumin Influenza Type A (PCR) NEGATIVE Influenza Type B (PCR) NEGATIVE RSV RNA Qual (PCR) NEGATIVE SARS-CoV-2 RNA (RT-PCR) NEGATIVE Imaging Radiologist's Impressions: Impressions Chest X-Ray 12/19/22 10:23 IMPRESSION: Findings in the right infrahilar region and right lower lung, concerning for atelectasis/infiltrate. Component of mild asymmetric pulmonary edema cannot be excluded. Assessment and Plan (1) Acute CHF: Status: Acute Plan Pt is a 62-year-old male with a PMH significant for?HLD and possible seizure in 2013 who presents to the ED with?increasing SOB with exertion and at rest. Pt will be admitted to the hospital for treatment and further evaluation of new- onset CHF. New onset CHF Etiology unclear, possibly secondary to recent pneumonia Chest x-ray concerning for possible asymmetric pulmonary edema, elevated BNP of 1284, pt with SOB, nonproductive cough Furosemide 40 mg IV qd Follow lucia Mag, I/O Echocardiogram Cardiology consult Admit to telemetry Question of community-acquired pneumonia Chest x-ray showing for atelectasis vs infiltrates Pt afebrile, no leukocytosis, completed course of azithromycin outpatient Hold on abx for now Check procalcitonin Chest tightness Most likely secondary to CHF, possibly undiagnosed COPD Troponin 18.1, EKG without ST elevations or depressions DuoNebs q4 while awake Transaminitis Mild, likely secondary to acute CHF Pt asymptomatic, not complaining of RUQ pain Follow CMP Nicotine dependence Pt with 50+ pack year history of smoking NRT, transdermal patch Smoking cessation encouraged HLD Continue home meds Full Code Attending:?Dr. Jacobs DVT Prophylaxis: Lovenox Pt will require a hospitalization of at least two nights for treatment and further evaluation of?new onset CHF with IV diuretics. Time Spent With Patient Time: Total time managing care of this patient today ____ minutes. Quality Stroke Does the patient have a stroke diagnosis?: No VTE Prior VTE?: No VTE Risk Level:: Medical - moderate - high VTE Device Contraindication: Treatment Not Indicated VTE Drug Contraindication: N/A - Med Ordered
[2022-12-19] MEDS: 0.9 % Sodium Chloride Flush 3 ML SYRINGE IVFLUSH ×2 (13:39→20:58)
[2022-12-19] MEDS: Nicotine 21 MG PATCH.TD24 TRANSDERMA (13:39)
[2022-12-19 14:02] LABS: Procalcitonin 0.03 ng/mL
--- NOTE | 2022-12-19 14:20 | PHA.MEDREC ---
Pharmacy Consult ? Medication Reconciliation Pharmacy has completed the medication reconciliation. Spoke to patient with spouse at bedside to confirm meds.
--- NOTE | 2022-12-19 15:13 | PM.EVENT ---
Event Note Date of Service: 12/19/22 Event Note: This patient is seen and examined with APC. 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 He denies any fever or night sweats, but says that he weight loss ? Denies any sick contact or recent travel . Lab imaging, EKG reviewed. WBC count normal, mild thrombocytopenia, BNP 1284, mild elevated LFT Chest x-ray question of atelectasis versus CHF ekg nsr Physical exam and assessment and plan coordinated in APCs note, Agree with the plan in addition: Shortness of breath: Unclear etiology-possible CHF considering elevated BNP and on and off progression of symptoms despite of antibiotics, procalcitonin now level negative. Will avoid antibiotic for now unless clinical situation changes with the new symptoms of fever and productive cough. Will add CT scan chest to evaluate chest x-ray findings. ? CHF etiology unclear Echo added, IV diuretics, daily weight, monitor I&O, cardiology evaluation. Time Spent With Patient Time: Total time managing care of this patient today ____ minutes.
[2022-12-20] VITALS (9 sets, daily range): BP systolic 99–132; BP diastolic 62–83; PULSE 75–93; RESP 17–20; TEMP 36.2–37.1; O2SAT 95–99
[2022-12-20 06:48] LABS: Alanine Aminotransferase 77 U/L (0-40); Albumin Level 3.5 g/dL (3.5-5.0); Alkaline Phosphatase 89 U/L (39-117); Anion Gap 12 (12-20); Aspartate Amino Transferase 27 U/L (5-37); Bilirubin Total 1.3 mg/dL (0.0-1.0); Blood Urea Nitrogen 20 mg/dL (9-16); Calcium 8.6 mg/dL (8.4-10.2); Carbon Dioxide 22 mmol/L (22-29); Chloride 112 mmol/L (96-108); Creatinine Clr Calc Pharmacy 104.1; Estimated Glomerular Filt Rate > 60; Glucose Random 82 mg/dL (60-115); Magnesium 1.6 mg/dL (1.6-2.6); Sodium 142 mmol/L (135-145); Total Protein 5.4 g/dL (6.5-8.0)
--- NOTE | 2022-12-20 07:00 | CA_ITS ---
Transthoracic Echocardiogram Patient (Last, First, Middle): Gonzalez Posey F Gender: Male Date of : 1960 Age: 62 Procedure Date: 12/20/2022 Procedure Type: Transthoracic Echocardiogram Location: [facility] [place] Height: 185.42 cm Weight: 83.01 kg BSA: 2.07 m2 Heart Rate: bpm BP: 117 / 68 mmHg Cut Order Hand: PATIENCE Referring MD: Amy CORTES Symptoms: New onset CHF Study Quality: Fair/Contrast Conclusions: - Severely increased left ventricular cavity size. There is normal left ventricular wall thickness. The left ventricular systolic function is severely decreased. The visually estimated ejection fraction is between 10-15%. - There is mild to moderately decreased right ventricular systolic function. RV is mild to moderately dilated. - The left atrium is severely dilated. - There is moderate mitral valve regurgitation. Findings Procedure Information Contrast agent, definity, is being given per protocol without apparent complications. Left Ventricle Severely increased left ventricular cavity size. There is normal left ventricular wall thickness. The left ventricular systolic function is severely decreased. The visually estimated ejection fraction is between 10 15%. There is severe global hypokinesis. Abnormal diastolic function is noted. Spectral Doppler is indicative of a restrictive filling pattern. Elevated filling pressures. Right Ventricle There is mild to moderately decreased right ventricular systolic function. RV is mild to moderately dilated. Atria The left atrium is severely dilated. The right atrium is mildly dilated. Aortic Valve There is a normal trileaflet aortic valve. There is no aortic valve stenosis. There is no aortic valve regurgitation. Mitral Valve There is moderate mitral valve regurgitation. There is no mitral valve stenosis. Apical tethering of the mitral valve leaflets. Pulmonic Valve Normal pulmonic valve structure and function. There is no pulmonic valve regurgitation. Tricuspid Valve Normal tricuspid valve structure. There is trace tricuspid valve regurgitation. Normal right atrial pressure. There is no evidence of pulmonary hypertension. Great Vessels There is mild dilatation of the ascending aorta measuring 3.60 cm. The visualized portions of the pulmonary artery and branches are normal. Venous The inferior vena cava is normal in size and collapses greater than 50% with inspiration. Pericardium/Pleural There is no evidence of pericardial effusion. Prior Study Comparison No prior study available for comparison. Measurements 2D Linear Measurements IVSd: 0.71 0.6-0.9/0.6-1.0 cm LVIDd: 7.03 3.9-5.3/4.2-5.9 cm LVIDd Index: 3.40 2.4-3.2/2.2-3.1 cm/m2 LVIDs: 6.57 2.0-3.6 cm LVPWd: 1.02 0.7-1.1 cm LA Diam: 4.20 2.7-3.8/3.0-4.0 cm LAIDs Index: 2.03 1.5-2.3 cm/m2 LV Mass: 337.31 67-162/88-224 g LV Mass Index: 162.95 43-95/49-115 g/m2 LVOT Diam: 2.40 3.0+(-)1.3 cm 2D Systolic Function EF 4C: 18.80 >55% EF 2C: 16.00 >55% EF BiP: 17.30 >55% Mitral Valve MV Pk E: 0.95 MV PK A: 0.31 MV Decel Time: 169.00 E/A: 3.00 E'Lateral: 6.32 E'Medial: 3.16 E/E' Med: 30.10 E/E' Lat: 15.00 PHT: 50.00 MVA PHT: 4.40 Decel [place]: 5.63 MR Vol - PW Dopp: 11.34 MR VTI: 1.26 MR ERO: 9.00 MR Alias Vinod: 0.39 MR RAD: 0.40 Aortic Valve AoV Pk Vinod: 1.15 AoV Mn Vinod: 0.87 AoV VTI: 0.21 AoV Pk Grad: 5.00 Aov Mn Grad: 3.00 MARQUITA Cont.VTI: 2.50 LVOT LVOT Pk Vinod: 0.78 LVOT Mn Vinod: 0.53 LVOT VTI: 0.12 LVOT Pk Grad: 2.00 LVOT Mn Grad: 1.00 LVOT Diam: 2.40 LVOT Area: 4.52 Diastolic Function MV Pk E: 0.95 MV Pk A: 0.31 E/A: 3.00 E'Medial: 3.16 E/E' Med: 30.10 E' Laterial: 6.32 E/E' Lat: 15.00 Right Ventricle TAPSE (mm): 10.60 TVS' Vinod: 12.00 Tricuspid Valve TR Pk Vinod: 2.18 TR Pk Grad: 19.00 RA Press: 3.00 RVSP: 22.00 Great Vessels Aorta Sinus of Valsalva: 3.40 2.0-3.5 cm Ao Asc: 3.60 2.1-3.4 cm Pulmonary Valve PV Pk Vinod: 0.68 Peak PV Grad: 2.00 Updated in Other Vendor System with Status of Final Jose Martin Arango MD electronically signed on 12/20/2022 3:54:56 PM with status of Final
--- NOTE | 2022-12-20 07:07 | PC.NURSE ---
pt 11 beats of vtach and 8 beats of vtach with movement. dr Sacha Castro notified.
--- NOTE | 2022-12-20 07:59 | PC.NURSE ---
pt had 11 bvt after doing incentive spirometry. pt is asymptomatic. MD Dr Jacobs notified
[2022-12-20] MEDS: 0.9 % Sodium Chloride Flush 3 ML SYRINGE IVFLUSH ×2 (08:47→17:13)
[2022-12-20] MEDS: Magnesium Oxide 400 MG TABLET PO ×2 (08:47→17:13)
[2022-12-20] MEDS: Magnesium Sulfate/D5W 1 GM/100 ML PIGGYBACK IV (08:47)
[2022-12-20] MEDS: Furosemide 40 MG/4 ML VIAL IVPUSH (08:47)
--- NOTE | 2022-12-20 10:57 | MHC.CM.PN ---
CM met with Patient, , and his Son at bedside. Patient lives in a house with his and Son and he is functionally independent and working. Home self care is the goal and CM has initiated and will follow for dc planning. Patient has received Covid vax x2 and his PCP is Dr. Bennett Barney.
--- NOTE | 2022-12-20 11:30 | P.PNIM_ITS ---
Subjective Subjective Date of Service: 12/20/22 Interval History: chf excerebation Review of Systems sob seems to be improving, no leg edema Physical Exam Vital Signs: Vital Signs: Last Vital Signs Temp 97.6 F 12/20/22 08:00 Pulse 92 12/20/22 08:00 Resp 18 12/20/22 08:00 BP 131/83 12/20/22 08:00 Pulse Ox 98 12/20/22 08:00 O2 Del Method 12/20/22 08:00 BMI result Body Mass Index 24.2 Appearance: Alert.? Oriented X3.? not in distress.? cvs: rrr, [id number] , no murmur res: clear to auscultation ,no rhonchii or wheezing abd: no rebound or guarding ,nt, bs present. ext pulses present , no cyanosis . neuro: axo3 , nonfocal. Objective Data Active Medications Albuterol Sulfate 2.5 mg/ (Ipratropium [place] 0.5 mg) 0 mg INHALE RQ4H WHILE AWAKE [facility] Last Admin: 12/20/22 07:40 Dose: 2.5 each Documented By: BROOKE Docusate Sodium (Docusate Sodium 100 Mg Capsule) 100 mg PO DAILY PRN PRN Reason: Constipation Enoxaparin Sodium (Enoxaparin Sodium 40 Mg/0.4 Ml Syringe) 40 mg SUBCUT Q24H [facility] Last Admin: 12/19/22 13:39 Dose: Not Given Documented By: NAVEEN Non-Admin Reason: Patient Refused Furosemide (Furosemide 40 Mg/4 Ml Vial) 40 mg IVPUSH DAILY [facility]; Protocol Last Admin: 12/20/22 08:47 Dose: 40 mg Documented By: SHARONDA Magnesium Oxide (Magnesium Oxide 400 Mg Tablet) 400 mg PO BIDPC [facility] Last Admin: 12/20/22 08:47 Dose: 400 mg Documented By: SHARONDA Pharmacy Consult (Consult Rx Perform Med Rec) 1 each MISCELLANE ONCE PRN PRN Reason: Consult order Sodium Chloride (0.9 % Sodium Chloride Flush 3 Ml Syringe) 3 ml IVFLUSH QSHIFT [facility] Last Admin: 12/20/22 08:47 Dose: 3 ml Documented By: SHARONDA Labs 12/19/22 10:57 12/20/22 05:59 Labs: Laboratory Results - last 24 hr 12/19/22 12/19/22 12/20/22 09:52 10:57 05:59 Anion Gap 12 Estim Creat Clear Calc 104.1 Estimated GFR > 60 Random Glucose 82 Calcium 8.6 Magnesium 1.6 Total Bilirubin 1.3 H AST 27 ALT 77 H Alkaline Phosphatase 89 Total Protein 5.4 L Albumin 3.5 Procalcitonin 0.03 Influenza Type A (PCR) NEGATIVE Influenza Type B (PCR) NEGATIVE RSV RNA Qual (PCR) NEGATIVE SARS-CoV-2 RNA (RT-PCR) NEGATIVE Assessment and Plan (1) Acute CHF: Status: Acute (2) Acute CHF: Status: Acute (3) HLD (hyperlipidemia): Status: Acute (4) Elevated liver enzymes: Status: Acute Plan 62-year-old male with a PMH significant for?HLD and possible seizure in 2013 who presents to the ED with?increasing SOB with exertion and at rest.? Pt will be admitted to the hospital for treatment and further evaluation of new-onset CHF. New onset CHF-etiology unclear Etiology unclear, possibly secondary to recent pneumonia Chest x-ray concerning for possible asymmetric pulmonary edema, elevated BNP of 1284, pt with SOB, nonproductive cough moniter on tele ,added Echocardiogram i/o 1.5 liter neg ,weight baseline unclear Furosemide 20 mg IV qd Follow Mag lucia, I/O Question of community-acquired pneumonia Chest x-ray showing for atelectasis vs infiltrates Pt afebrile, no leukocytosis, completed course of azithromycin outpatient,low procalcitonin chest ct-less likely pneumonia, has received antibiotics recently for pneumonia ,in addition chest Ct -Mildly prominent mediastinal lymph nodes some of which are borderline enlarged, could be reactive( considering recent pneumonia ).consider outpatient workup for above ct chest findings outpatient with pcp. Hold on abx for now, incentive spirometry, chest physiotherapy,DuoNebs q4 while awake Chest tightness. Most likely secondary to CHF, possibly undiagnosed COPD Troponin 13-18.1, EKG without ST elevations or depressions Cardiology saw the patient-currently patient asymptomatic, echo pending. Transaminitis Mild, likely secondary to acute CHF Pt asymptomatic, not complaining of RUQ pain Follow CMP Nicotine dependence Pt with 50+ pack year history of smoking NRT, transdermal patch Smoking cessation encouraged HLD Continue home meds inpatient need:New onset CHF-need iv diuresis , need renal function and electrolyte monitoring, also cardiac workup pending Time Spent With Patient Time: Total time managing care of this patient today ____ minutes. Quality Stroke Does the patient have a stroke diagnosis?: No VTE Prior VTE?: No VTE Risk Level:: Medical - moderate - high VTE Device Contraindication: Treatment Not Indicated VTE Drug Contraindication: N/A - Med Ordered
--- NOTE | 2022-12-20 14:05 | PC.NURSE ---
pt had 3 beats of vtach. pt is asymptomatic. MD Dr Jacobs notified
--- NOTE | 2022-12-20 14:10 | P.CONCA_ITS ---
History of Present Illness History of Present Illness Date of Service: 12/20/22 Requesting physician: Markie Jacobs Chief complaint: Acute CHF Narrative: 62-year-old gentleman presenting for shortness of breath. He recently received 2 courses of antibiotics for pneumonia. 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 Presented to the emergency department and was noticed to be clinically in heart failure. His BNP level was want to wait for. He also had mildly abnormal LFTs. Imaging has shown pleural effusions and congestion pointing to her congestive heart failure. He was given IV diuretics and is feeling better. He has chronically low blood pressure and was told many years ago to increase his salt intake. He takes salt tabs at home. He also received some prednisone recently for pneumonia and congestion. He is a smoker. He was drinking alcohol many years ago but does not drink anymore. Denying chest discomfort. [facility] Past Medical History Medical History (Updated 12/20/22 @ 13:44 by Markie Jacobs MD) Seizure Social History Social History Household Members: Spouse Housing: House Do you presently have visiting nurse or other home services: No Patient Tobacco Use Status: Current everyday Tobacco user Tobacco use type: Cigarette Cigarettes Per Day: 15 Years Smoked: 41 Smoked in Last 30 Days: Yes Patient Interested in Nicotine Replacement: Yes Use of substances other than those prescribed or required for medical reasons: No Currently Displaying Signs/Symptoms of Drug Intoxication Withdrawal: No Have you been hit, kicked, punched, or otherwise hurt by someone within the past year? If so, by whom?: No Do you feel safe in your current relationship?: Yes Is there a partner from a previous relationship who is making you feel unsafe now?: No Are you made to feel afraid or neglected: No Advance Directives: Yes Advance Directives Information Provided: No Advance Directives on File: No Advance Directives Date on File: 12/19/22 Do you have thoughts of harming others: None Do you have a plan to hurt others: No Plan Recently lost weight without trying: Yes How much weight loss: 2-13 pounds Eating poorly because of decreased appetite: Yes Nutrition screen score: 4 Nutrition Risks: No Nutritional Risk Poor oral hygiene: No service: No Current occupational status: employed Meds Allergies Allergy/AdvReac Type Severity Reaction Status Date / Time No Known Allergies Allergy Verified 12/19/22 09:17 Active Medications: Current Medications Albuterol Sulfate 2.5 mg/ (Ipratropium [place] 0.5 mg) 0 mg INHALE RQ4H WHILE AWAKE [facility] Last Admin: 12/20/22 11:37 Dose: 2.5 each Docusate Sodium (Docusate Sodium 100 Mg Capsule) 100 mg PO DAILY PRN PRN Reason: Constipation Enoxaparin Sodium (Enoxaparin Sodium 40 Mg/0.4 Ml Syringe) 40 mg SUBCUT Q24H [facility] Last Admin: 12/19/22 13:39 Dose: Not Given Furosemide (Furosemide 40 Mg/4 Ml Vial) 20 mg IVPUSH DAILY [facility]; Protocol Magnesium Oxide (Magnesium Oxide 400 Mg Tablet) 400 mg PO BIDPC [facility] Last Admin: 12/20/22 08:47 Dose: 400 mg Nicotine (Nicotine 21 Mg Patch.Td24) 21 mg TRANSDERMA DAILY [facility] Pharmacy Consult (Consult Rx Perform Med Rec) 1 each MISCELLANE ONCE PRN PRN Reason: Consult order Sodium Chloride (0.9 % Sodium Chloride Flush 3 Ml Syringe) 3 ml IVFLUSH QSHIFT [facility] Last Admin: 12/20/22 08:47 Dose: 3 ml Home Medications Medication Instructions Recorded Confirmed Last Taken Type atorvastatin 40 mg tablet 1 tab PO DAILY 12/19/22 12/19/22 12/19/22 History guaifenesin 1,200 mg tablet, 1,200 mg PO Q12H PRN 12/19/22 12/19/22 12/19/22 09:00 History extended release 12 hr (Mucinex) Cough/congestion Physical Exam Vital Signs: Vital Signs: Last Vital Signs Temp 97.8 F 12/20/22 11:52 Pulse 75 12/20/22 11:52 Resp 18 12/20/22 11:52 BP 99/67 12/20/22 11:52 Pulse Ox 98 12/20/22 11:52 O2 Del Method 12/20/22 11:52 BMI result Body Mass Index 24.2 GENERAL APPEARANCE: in no acute distress, pleasant. NECK: no carotid bruit, no jugular venous distention. SKIN: no suspicious lesions, warm and dry. HEART: no murmurs, regular rate and rhythm. LUNGS: Left basal crackles. ABDOMEN: soft, nontender. EXTREMITIES: no edema. PERIPHERAL PULSES: equal. NEUROLOGIC: No gross deficits, AAO X 3 Objective Labs and Meds 12/19/22 10:57 12/20/22 05:59 Lab results: Laboratory Results - last 24 hr 12/20/22 05:59 Sodium 142 Potassium 4.0 Chloride 112 H Carbon Dioxide 22 Anion Gap 12 BUN 20 H Creatinine 0.81 Estim Creat Clear Calc 104.1 Estimated GFR > 60 Random Glucose 82 Calcium 8.6 Magnesium 1.6 Total Bilirubin 1.3 H AST 27 ALT 77 H Alkaline Phosphatase 89 Total Protein 5.4 L Albumin 3.5 Imaging Radiologist's impression: Impressions Chest CT 12/19/22 14:55 IMPRESSION: * Bilateral pleural effusions right more than left. * Compressive atelectasis at lower lobes due to adjacent pleural effusions right more than left. * Mild pulmonary vascular congestion. * Mild foote lobar central and peripheral paraseptal emphysema. * Mildly prominent mediastinal lymph nodes some of which are borderline enlarged, could be reactive. * Mild coronary calcification. Assessment and Plan (1) Acute CHF: Status: Acute Plan Pleasant 62 gentleman presenting dyspnea and acute congestive heart failure. He has been given IV diuretics and overall is improving. I think she can be changed to oral diuretics tomorrow. Will do echocardiogram to assess for any cardiomyopathy or wall motion abnormality. Further workup will be decided based on that. He has chronically low blood pressures and it will be challenging to add medications. If LVEF is normal then I would use the blood pressure to give diuretics to decongest and help with symptom control. If he has cardiomyopathy then we will add low-dose medications and monitor him closely. Thank you for allowing me to participate in the care of your patient. Please feel free to contact me if you have any questions. Time Spent With Patient Time: Total time managing care of this patient today ____ minutes. Procedures Date of Service Date of Service: 12/20/22
[2022-12-20] MEDS: Nicotine 21 MG PATCH.TD24 TRANSDERMA (14:13)
[2022-12-20] MEDS: Enoxaparin Sodium 40 MG/0.4 ML SYRINGE SUBCUT (14:13)
[2022-12-20] MEDS: Empagliflozin 10 MG TABLET PO (17:13)
[2022-12-20] MEDS: Sacubitril/Valsartan 24/26 1 TAB TABLET PO (21:31)
[2022-12-21] VITALS (9 sets, daily range): BP systolic 92–104; BP diastolic 56–69; PULSE 59–84; RESP 14–20; TEMP 36.4–37.2; O2SAT 95–98
[2022-12-21] MEDS: Sacubitril/Valsartan 24/26 1 TAB TABLET PO ×3 (06:31→20:51)
[2022-12-21] MEDS: 0.9 % Sodium Chloride Flush 3 ML SYRINGE IVFLUSH ×4 (06:32→20:51)
[2022-12-21 08:07] LABS: Alanine Aminotransferase 65 U/L (0-40); Albumin Level 3.8 g/dL (3.5-5.0); Alkaline Phosphatase 97 U/L (39-117); Anion Gap 11 (12-20); Aspartate Amino Transferase 23 U/L (5-37); Bilirubin Direct 0.3 mg/dL (0.0-0.5); Bilirubin Total 1.1 mg/dL (0.0-1.0); Blood Urea Nitrogen 21 mg/dL (9-16); Calcium 9.2 mg/dL (8.4-10.2); Carbon Dioxide 28 mmol/L (22-29); Chloride 107 mmol/L (96-108); Creatinine Clr Calc Pharmacy 80.3; Estimated Glomerular Filt Rate > 60; Glucose Random 89 mg/dL (60-115); Potassium 3.9 mmol/L (3.3-5.1); Sodium 142 mmol/L (135-145); Total Protein 5.9 g/dL (6.5-8.0)
[2022-12-21] MEDS: Furosemide 20 MG TABLET PO (09:29)
[2022-12-21] MEDS: Magnesium Oxide 400 MG TABLET PO ×2 (09:29→18:18)
[2022-12-21] MEDS: Nicotine 21 MG PATCH.TD24 TRANSDERMA (09:30)
[2022-12-21] MEDS: Empagliflozin 10 MG TABLET PO (09:30)
--- NOTE | 2022-12-21 12:45 | P.DS_ITS ---
DS: Providers Provider Date of Service: 12/21/22 Date of admission: 12/19/22 13:26 Primary care physician: Bennett Barney MD Consults: 12/19/22 13:31 Consult to Cardiology Routine Consulting Provider: [facility] Reason for consultation: New onset CHF DS: Diagnosis Discharge Diagnosis (1) Acute CHF: Status: Acute DS: Summary Hospital Course Hospital Course: Pt is a 62-year-old male with a PMH significant for?HLD and possible seizure in 2013 who presents to the ED with?increasing SOB with exertion and at rest. Pt's symptoms began 3-4 weeks ago with mostly non-productive cough and SOB. Was diagnosed with pneumonia and prescribed albuterol, levofloxacin, and prednisone. Completed all medications as prescribed. 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 Cough still mostly non-productive.? Has chest tightness, mostly associated with coughing and breathing deeply.? No lower leg edema. Patient denies fever, chills, nausea, vomiting, diarrhea, abdominal pain. Denies orthopnea, but states he sometimes feels discomfort in his back and/or abdomen when he lays down in just the right position. Pt denies hx of CHF or heart problems. Of note, pt is a current smoker with a 50+ pack-year history of smoking. In the ED patient was afebrile, tachypneic up to 32, satting at 97% on RA. Labs were significant for WBC WNL, platelets of 110, total bilirubin of 1.4, AST 50, ALT 118, BNP elevated at 12 84. CXR showed opacities in the infrahilar region and right lower lung concerning for atelectasis/infiltrate, and possible asymmetric pulmonary edema. EKG demonstrated sinus rhythm with PVCs. Pt was treated with furosemide 40 mg and albuterol. Pt will be admitted to the hospital for treatment and further evaluation of new-onset CHF. Hospital course: New onset CHF with EF 10 to 15 percent,no evidence of acute ischemia. Treated in the hospital with IV diuretics under the guidance of cardiology symptomatically is feeling better, BNP was as high as 1284, will likely need further testing or investigaion on outpatient basis and this will be arranged through the tunnel elastic operator lockstitch office. Additionally his medications include entresto, lasix, bisoprolol and Aldactone, Question of community-acquired pneumonia Chest x-ray showing for atelectasis vs infiltrates Pt afebrile, no leukocytosis, completed course of azithromycin outpatient,low procalcitonin chest ct-less likely pneumonia, has received antibiotics recently for pneumonia ,in addition chest Ct -Mildly prominent mediastinal lymph nodes some of which are borderline enlarged, could be reactive( considering recent pneumonia ).consider outpatient workup for above ct chest findings outpatient with pcp. There was no indication for antibiotics. Chest tightness. Most likely secondary to CHF, possibly undiagnosed COPD Troponin 13-18.1, EKG without ST elevations or depressions Cardiology saw the patient and will follow up on outpatient basis for further testing Transaminitis Mild, likely secondary to acute CHF Pt asymptomatic and already coming down Nicotine dependence Pt with 50+ pack year history of smoking Smoking cessation encouraged, advised HLD --Continue statin i Time Spent with Patient Time attestation: Total time managing care of this patient today ____ minutes. Discharge coordination time: Greater than 30 minutes Quality: Safe Use of Opioids Does Pt have an Active Cancer Diagnosis on the Problem List?: No Quality: Stroke Does the patient have a stroke diagnosis?: No Physical Exam Vital Signs: Vital Signs: Last Vital Signs Temp 97.5 F 12/21/22 11:22 Pulse 80 12/21/22 11:22 Resp 20 12/21/22 11:22 BP 101/69 12/21/22 11:22 Pulse Ox 97 12/21/22 11:22 O2 Del Method 12/21/22 11:22 BMI result Body Mass Index 24.2 DS: Data Data Completed and Pending Labs on day of discharge: Laboratory Results - last 24 hr 12/21/22 07:32 Sodium 142 Potassium 3.9 Chloride 107 Carbon Dioxide 28 Anion Gap 11 L BUN 21 H Creatinine 1.05 Estim Creat Clear Calc 80.3 Estimated GFR > 60 Random Glucose 89 Calcium 9.2 D Total Bilirubin 1.1 H Direct Bilirubin 0.3 AST 23 ALT 65 H Alkaline Phosphatase 97 Total Protein 5.9 L Albumin 3.8 Discharge Plan Discharge Anticipated Discharge Date/Time: 12/22/22 15:08 Patient Disposition: Home, Self-Care Discharge Diagnosis: Heart failure Referrals: Bennett Barney MD [Primary Care Provider] - 1 Week Discharge Medications: New bisoprolol fumarate 5 mg Tablet 1.25 mg PO DAILY Qty: 30 0RF Entresto 24-26 mg Tablet 1 tab PO BID Qty: 60 0RF Protocol: Hold for SBP< HOLD for SBP < : 90 spironolactone 25 mg Tablet 25 mg PO DAILY Qty: 30 0RF Protocol: Hold for SBP< HOLD for SBP < : 90 furosemide 20 mg Tablet 20 mg PO DAILY Qty: 30 0RF Protocol: Hold for SBP< HOLD for SBP < : 90 Continued albuterol sulfate 90 mcg/actuation aerosol powdr breath activated 2 inh inhalation Q6H PRN (Reason: shortness of breath or wheezing) Qty: 1 0RF atorvastatin 40 mg tablet 1 tab PO DAILY Mucinex 1,200 mg Tablet Extended Release 12hr 1,200 mg PO Q12H PRN (Reason: Cough/congestion) Discharge Orders: Discharge Order (Routine); Ordered 12/22/22 Ordered By: Kyle Pham Diet: Advance to usual diet Activity on Discharge: As tolerated Stand Alone Forms: Patient Portal Discharge page, Work/School Release Care Plan Goals: full recovery Health Concerns: heart failure Plan of Treatment: Take all medications (bisoprolol, furosemide, entresto, and spiranolactone) as prescribed and follow up with your Doctor in a week follow up with Dr. Arango You are not to return to work for at least 2 weeks and cleared by your Dr. Bustamante Assessment: as above Patient Instructions: Furosemide (By injection), Heart Failure (GEN), Pulmonary Edema (GEN)
[2022-12-21] MEDS: Enoxaparin Sodium 40 MG/0.4 ML SYRINGE SUBCUT (13:56)
[2022-12-21] MEDS: Spironolactone 25 MG TABLET PO (13:58)
--- NOTE | 2022-12-21 15:13 | HO.PM.IMPN ---
Subjective Subjective Date of Service: 12/21/22 Interval History: f.u on heart failure, cardiomyopathy feels better, no so Physical Exam Vital Signs: Vital Signs: Last Vital Signs Temp 97.5 F 12/21/22 11:22 Pulse 80 12/21/22 11:22 Resp 20 12/21/22 11:22 BP 101/69 12/21/22 11:22 Pulse Ox 97 12/21/22 11:22 O2 Del Method 12/21/22 11:22 BMI result Body Mass Index 24.2 Const: Other: General: AO X 3, no acute distress Resp: CTA bilateral CVS: S1,S2,RRR GI: +BS, NT, no distention Skin: No rash Neuro: motor grossly intact Psych: appropriate affect Objective Data Active Medications Bisoprolol Fumarate (Bisoprolol Fumarate 5 Mg Tablet) 1.25 mg PO DAILY [facility] Albuterol Sulfate 2.5 mg/ (Ipratropium [place] 0.5 mg) 0 mg INHALE RQ4H WHILE AWAKE [facility] Last Admin: 12/21/22 11:31 Dose: 1 each Documented By: PATTY Docusate Sodium (Docusate Sodium 100 Mg Capsule) 100 mg PO DAILY PRN PRN Reason: Constipation Empagliflozin (Empagliflozin 10 Mg Tablet) 10 mg PO DAILY [facility] Last Admin: 12/21/22 09:30 Dose: 10 mg Documented By: KWASI Enoxaparin Sodium (Enoxaparin Sodium 40 Mg/0.4 Ml Syringe) 40 mg SUBCUT Q24H [facility] Last Admin: 12/21/22 13:56 Dose: 40 mg Documented By: KWASI Furosemide (Furosemide 20 Mg Tablet) 20 mg PO DAILY [facility]; Protocol Last Admin: 12/21/22 09:29 Dose: 20 mg Documented By: KWASI Magnesium Oxide (Magnesium Oxide 400 Mg Tablet) 400 mg PO BIDPC [facility] Last Admin: 12/21/22 09:29 Dose: 400 mg Documented By: KWASI Nicotine (Nicotine 21 Mg Patch.Td24) 21 mg TRANSDERMA DAILY [facility] Last Admin: 12/21/22 09:30 Dose: 21 mg Documented By: KWASI Pharmacy Consult (Consult Rx Perform Med Rec) 1 each MISCELLANE ONCE PRN PRN Reason: Consult order Sacubitril/Valsartan (Sacubitril/Valsartan 24/26 1 Tab Tablet) 1 tab PO BID [facility]; Protocol Last Admin: 12/21/22 09:29 Dose: 1 tab Documented By: KWASI Sodium Chloride (0.9 % Sodium Chloride Flush 3 Ml Syringe) 3 ml IVFLUSH QSHIFT [facility] Last Admin: 12/21/22 09:29 Dose: 3 ml Documented By: KWASI Spironolactone (Spironolactone 25 Mg Tablet) 25 mg PO DAILY [facility]; Protocol Last Admin: 12/21/22 13:58 Dose: 25 mg Documented By: KWASI Labs 12/19/22 10:57 12/21/22 07:32 Labs: Laboratory Results - last 24 hr 12/21/22 07:32 Anion Gap 11 L Estim Creat Clear Calc 80.3 Estimated GFR > 60 Random Glucose 89 Calcium 9.2 D Total Bilirubin 1.1 H Direct Bilirubin 0.3 AST 23 ALT 65 H Alkaline Phosphatase 97 Total Protein 5.9 L Albumin 3.8 Assessment and Plan (1) Acute CHF: Status: Acute (2) HFrEF (heart failure with reduced ejection fraction): Status: Acute Plan New onset CHF with EF 10 to 15 percent,no evidence of acute ischemia. Treated in the hospital with IV diuretics under the guidance of cardiology? symptomatically is feeling better, BNP was as high as 1284, will likely need? further testing or investigaion on outpatient basis and this will be arranged through the lead software developer office. Adding aldactone and Entresto Question of community-acquired pneumonia Chest x-ray showing for atelectasis vs infiltrates Pt afebrile, no leukocytosis, completed course of azithromycin outpatient,low procalcitonin chest ct-less likely pneumonia, has received antibiotics recently for pneumonia ,in addition chest Ct -Mildly prominent mediastinal lymph nodes some of which are borderline enlarged, could be reactive( considering recent pneumonia ).consider outpatient workup for above ct chest findings outpatient with pcp. There was no indication for antibiotics. Chest tightness. Most likely secondary to CHF, possibly undiagnosed COPD Troponin 13-18.1, EKG without ST elevations or depressions Cardiology saw the patient and will follow up on outpatient basis for further testing Transaminitis Mild, likely secondary to acute CHF Pt asymptomatic and already coming down Nicotine dependence Pt with 50+ pack year history of smoking Smoking cessation encouraged, advised HLD --Continue statin Need for inpatient : heart failure management Time Spent With Patient Time: Total time managing care of this patient today ____ minutes. Quality Stroke Does the patient have a stroke diagnosis?: No VTE Prior VTE?: No VTE Risk Level:: Medical - moderate - high VTE Device Contraindication: Treatment Not Indicated VTE Drug Contraindication: N/A - Med Ordered
--- NOTE | 2022-12-21 16:41 | PM.PNCARD ---
Subjective Subjective Date of Service: 12/21/22 Interval history: Seen examined at bedside. Feeling better. We had Entresto and Jardiance last night and he has been tolerating them well. Physical Exam Vital Signs: Last Vital Signs Temp 98.0 F 12/21/22 15:39 Pulse 73 12/21/22 15:42 Resp 18 12/21/22 15:42 BP 104/67 12/21/22 15:39 Pulse Ox 96 12/21/22 15:39 O2 Del Method 12/21/22 15:39 BMI result Body Mass Index 24.2 GENERAL APPEARANCE: in no acute distress, pleasant. NECK: no carotid bruit, no jugular venous distention. SKIN: no suspicious lesions, warm and dry. HEART: no murmurs, regular rate and rhythm. LUNGS: Clear to auscultation. ABDOMEN: soft, nontender. EXTREMITIES: no edema. PERIPHERAL PULSES: equal. NEUROLOGIC: No gross deficits, AAO X 3 Objective Labs and Meds 12/19/22 10:57 12/21/22 07:32 Lab results: Laboratory Results - last 24 hr 12/21/22 07:32 Sodium 142 Potassium 3.9 Chloride 107 Carbon Dioxide 28 Anion Gap 11 L BUN 21 H Creatinine 1.05 Estim Creat Clear Calc 80.3 Estimated GFR > 60 Random Glucose 89 Calcium 9.2 D Total Bilirubin 1.1 H Direct Bilirubin 0.3 AST 23 ALT 65 H Alkaline Phosphatase 97 Total Protein 5.9 L Albumin 3.8 Progress Note: A&P Assessment and plan (1) HFrEF (heart failure with reduced ejection fraction): Status: Acute Plan [age] gentleman presenting with acute congestive heart failure and has been diagnosed with severe cardiomyopathy with ejection fraction 10-15% and dilated left ventricle. Clinically he is compensated. We have started neurohormonal medications including Entresto and Jardiance. I am adding spironolactone and bisoprolol 1.25 mg daily. If stable tomorrow morning then can be discharged home. Thank you for allowing me to participate in the care of your patient. Please feel free to contact me if you have any questions. Time Spent With Patient Time: Total time managing care of this patient today ____ minutes. Progress Note: Quality Stroke Does the patient have a stroke diagnosis?: No Procedures Date of Service Date of Service: 12/21/22
[2022-12-21] MEDS: Bisoprolol Fumarate 5 MG TABLET 1.25 MG PO (18:15)
[2022-12-22] VITALS (7 sets, daily range): BP systolic 93–102; BP diastolic 59–65; PULSE 69–91; RESP 16–18; TEMP 36–36.8; O2SAT 93–99; BMI 23.2
[2022-12-22] MEDS: Furosemide 20 MG TABLET PO (09:44)
[2022-12-22] MEDS: Empagliflozin 10 MG TABLET PO (09:44)
[2022-12-22] MEDS: Magnesium Oxide 400 MG TABLET PO (09:44)
[2022-12-22] MEDS: Spironolactone 25 MG TABLET PO (09:45)
[2022-12-22] MEDS: Nicotine 21 MG PATCH.TD24 TRANSDERMA (09:45)
[2022-12-22] MEDS: Bisoprolol Fumarate 5 MG TABLET 1.25 MG PO (09:46)
[2022-12-22] MEDS: Sacubitril/Valsartan 24/26 1 TAB TABLET PO (09:46)
[2022-12-22] MEDS: 0.9 % Sodium Chloride Flush 3 ML SYRINGE IVFLUSH (09:46)
[2022-12-22 11:56] LABS: Anion Gap 12 (12-20); Blood Urea Nitrogen 19 mg/dL (9-16); Carbon Dioxide 26 mmol/L (22-29); Chloride 107 mmol/L (96-108); Creatinine Clr Calc Pharmacy 88.6; Estimated Glomerular Filt Rate > 60; Glucose Random 105 mg/dL (60-115); Potassium 3.8 mmol/L (3.3-5.1); Sodium 141 mmol/L (135-145)
[2022-12-22] MEDS: Enoxaparin Sodium 40 MG/0.4 ML SYRINGE SUBCUT (13:43)
--- NOTE | 2022-12-22 14:37 | PM.PNCARD ---
Subjective Subjective Date of Service: 12/22/22 Interval history: Seen examined at bedside. Feeling good. Euvolemic. Tolerating meds well. Physical Exam Vital Signs: Last Vital Signs Temp 97.9 F 12/22/22 11:15 Pulse 88 12/22/22 11:27 Resp 18 12/22/22 11:27 BP 102/64 12/22/22 13:47 Pulse Ox 99 12/22/22 11:15 O2 Del Method 12/22/22 11:15 BMI result Body Mass Index 23.2 GENERAL APPEARANCE: in no acute distress, pleasant. NECK: no carotid bruit, no jugular venous distention. SKIN: no suspicious lesions, warm and dry. HEART: no murmurs, regular rate and rhythm. LUNGS: Clear to auscultation. ABDOMEN: soft, nontender. EXTREMITIES: no edema. PERIPHERAL PULSES: equal. NEUROLOGIC: No gross deficits, AAO X 3 Objective Labs and Meds 12/19/22 10:57 12/22/22 11:32 Lab results: Laboratory Results - last 24 hr 12/22/22 11:32 Sodium 141 Potassium 3.8 Chloride 107 Carbon Dioxide 26 Anion Gap 12 BUN 19 H Creatinine 0.95 Estim Creat Clear Calc 88.6 Estimated GFR > 60 Random Glucose 105 Calcium 9.0 Magnesium 2.0 Progress Note: A&P Assessment and plan (1) HFrEF (heart failure with reduced ejection fraction): Status: Acute Plan 62-year-old gentleman presenting with acute congestive heart failure and has been diagnosed with severe cardiomyopathy with ejection fraction 10-15% and dilated left ventricle. Clinically he is compensated. We have started neurohormonal medications including Entresto, Jardiance, spironolactone and bisoprolol 1.25 mg daily. Clinically stable and can go home. Will need to stay out of work till we can do diagnostic angiography to rule out significant coronary disease. Thank you for allowing me to participate in the care of your patient. Please feel free to contact me if you have any questions. Time Spent With Patient Time: Total time managing care of this patient today ____ minutes. Progress Note: Quality Stroke Does the patient have a stroke diagnosis?: No Procedures Date of Service Date of Service: 12/22/22
--- NOTE | 2022-12-22 15:14 | MHC.CM.PN ---
Patient has been medically cleared for dc to home today, self care.
== END 2022-12-22 16:23 | disposition home or self-care (01) | DRG 194 ==
LOC: HO.ED 10:38 → HO.EDOVER 13:51 → HO.IMC 14:56
PROVIDERS: Internal Medicine; Physician Assistant; Admitting Provider Student in an Organized Health Care Education/Training Program; Emergency Provider Student in an Organized Health Care Education/Training Program; PCP Internal Medicine; Visit Provider Internal Medicine
DX: I50.21 Acute systolic (congestive) heart failure (principal); J18.9 Pneumonia, unspecified organism; D69.6 Thrombocytopenia, unspecified; J44.0 Chronic obstructive pulmonary disease with (acute) lower respiratory infection; I42.9 Cardiomyopathy, unspecified; F17.210 Nicotine dependence, cigarettes, uncomplicated; E78.00 Pure hypercholesterolemia, unspecified; Z20.822 Contact with and (suspected) exposure to COVID-19; Z71.6 Tobacco abuse counseling; Z79.899 Other long term (current) drug therapy
CPT/HCPCS: 0241U; 36415; 71045; 71250; 80048; 80053; 80076; 83735; 83880; 84145; 84484; 85025; 85610; 85730; 93005; 93306; 94640; 99284; J1650; J1940; J3475; Q9957

== ENCOUNTER 2025-02-19 09:36 | Emergency (ER) | payer MEDICARE, SELFPAY ==
[2025-02-19 09:58] VITALS: BP 81/40; PULSE 76; RESP 18; TEMP 36.4; O2SAT 100; BMI 29.5
--- NOTE | 2025-02-19 10:47 | ED_ITS ---
HPI - Skin/Abscess/Foreign Bdy General Chief complaint: Skin/Abscess/Foreign Body Stated complaint: Cyst? Time Seen by Provider: 02/19/25 10:38 Source: patient Mode of arrival: ambulatory Limitations: no limitations History of Present Illness HPI narrative: this is a 64 years old the patient presented to the emergency department with a chief complaint of pain in the gluteal area pain he has been ongoing for about 2 days he denies any fever or chills complaint: abscess/boil Onset (ago): day(s) (2) Location: buttocks (rt buttock) Severity: moderate Severity scale (1-10): 5 Quality: burning Pain Consistency: constant Relieving factors: none Exacerbating factors: none Related Data Home Medications ?Medication ?Instructions ?Recorded ?Confirmed atorvastatin 40 mg tablet 1 tab PO DAILY 12/19/22 12/19/22 guaifenesin 1,200 mg tablet, 1,200 mg PO Q12H PRN 12/19/22 12/19/22 extended release 12 hr (Mucinex) Cough/congestion Previous Rx's ?Medication ?Instructions ?Recorded albuterol sulfate 90 mcg/actuation 2 inh inhalation Q6H PRN shortness 03/21/22 breath activated powder inhaler of breath or wheezing #1 ea bisoprolol fumarate 5 mg tablet 1.25 mg (1/4 x 5 mg) PO DAILY #30 12/22/22 tabs furosemide 20 mg tablet 20 mg PO DAILY #30 tabs 12/22/22 sacubitril 24 mg-valsartan 26 mg 1 tab PO BID #60 tabs 12/22/22 tablet (Entresto) spironolactone 25 mg tablet 25 mg PO DAILY #30 tabs 12/22/22 amoxicillin 875 mg-potassium 1 tab PO BID #14 tabs 02/19/25 clavulanate 125 mg tablet Allergies Allergy/AdvReac Type Severity Reaction Status Date / Time No Known Allergies Allergy Verified 02/19/25 09:59 Review of Systems 2 Constitutional: Constitutional: Reports no additional constitutional complaints ENT: Reports system reviewed and no additional complaints, except as documented Musculoskeletal: Musculoskeletal: Reports no additional musculoskeletal complaints PMFSH Past Medical History Attestation statement: The following information was validated with the patient. Medical History Seizure Social History Social History Household Members: Spouse Housing: House Do you presently have visiting nurse or other home services: No Patient Tobacco Use Status: Current everyday Tobacco user Tobacco use type: Cigarette Cigarettes Per Day: 15 Years Smoked: 41 Smoked in Last 30 Days: No Use of substances other than those prescribed or required for medical reasons: No Advance Directives: Yes Advance Directives Information Provided: Yes Advance Directives on File: No Advance Directives Date on File: 12/19/22 service: No Current occupational status: employed Physical Exam 2 Vital Signs: Vital Signs: Last Vital Signs Temp 97.5 F 02/19/25 09:58 Pulse 76 02/19/25 09:58 Resp 18 02/19/25 09:58 BP 81/40 L 02/19/25 09:58 Pulse Ox 100 02/19/25 09:58 O2 Del Method Room Air 02/19/25 09:58 BMI result Body Mass Index 29.5 Const: General: cooperative Nutritional Appearance: average body habitus Orientation/consciousness: patient oriented x3 Limitations: no limitations HEENT: Head: Yes normal to inspection General nose exam: Normal external nose present Face and sinus: Yes normal facial exam Mouth: Normal oral and palatal mucosa present Throat: Yes posterior oropharynx normal Neck: Neck: Yes normal visual inspection and Yes full ROM Chest: Chest palpation & inspection: normal inspection of the chest Resp: Effort & Inspection: normal respiratory effort Auscultation: clear to auscultation bilaterally Cardio: Jugular venous distension: no JVD Rate: regular rate Rhythm: r egular rhythm GI: Inspection: Yes normal to inspection Palpation (GI): Soft to palpation, not firm, nontender and no guarding Rectal Exam - Male: Yes other ( examination of the rectal area tenderness redness rt anal area) Skin: Other: redness in the right anal area Neuro: General: patient oriented x3 Course Reevaluation(s) Reevaluation #1: US perfomed left rectal area with linear probe abscess present Time: 11:08 Reevaluation #2: I and D perform and feels much better anticipate discharge blood pressure noted however he is asymptomatic he tells me that he always as low blood pressure so I do not think any to do any blood work he is completely asymptomatic he has no chest pain or shortness of breath Time: 11:15 Medications Administered Discontinued Medications Generic Name Dose Route Start Last Admin Trade Name Freq PRN Reason Stop Dose Admin Lidocaine HCl 10 ml 02/19/25 10:45 02/19/25 10:50 Lidocaine Hcl 1 % Mpf 5 Ml Vial INFILTRATI 02/19/25 10:46 10 ml ONCE ONE Administration Medical Decision Making Medical Decision Making [facility] Narrative: patient presented left rectal abscess I and D was done patient will be discharged home with p.o. antibiotic and follow-up with Dr. Scott Differential Diagnosis Differential Diagnoses: The differential diagnosis associated with the presentation includes Admission/Observation Consideration of admission/observation: Escalation of care including admission/observation considered Procedures Abscess I/D Site: other (left rectal area) Side (if applicable): left Local Anesthetic: lidocaine 1% Amount of anesthesia used (mL): 5 Technique: incised with blade Amount of fluid expressed (mL): 40 Sent for culture/gram staining?: Yes Irrigation: No Packing used?: none Discharge Plan Discharge Clinical Impression: Abscess, rectum Patient Disposition: Home, Self-Care Instructions: Rectal Abscess (ED) Additional Instructions: we sent a prescription for Augmentin to your pharmacy, please follow-up with Dr. Scott specialist on colorectal Prescriptions: New amoxicillin-pot clavulanate 875-125 mg tablet 1 tab PO BID Qty: 14 0RF No Action albuterol sulfate 90 mcg/actuation aerosol powdr breath activated 2 inh inhalation Q6H PRN (Reason: shortness of breath or wheezing) Qty: 1 0RF atorvastatin 40 mg tablet 1 tab PO DAILY Mucinex 1,200 mg Tablet Extended Release 12hr 1,200 mg PO Q12H PRN (Reason: Cough/congestion) bisoprolol fumarate 5 mg Tablet 1.25 mg PO DAILY Qty: 30 0RF Entresto 24-26 mg Tablet 1 tab PO BID Qty: 60 0RF Protocol: Hold for SBP< HOLD for SBP < : 90 spironolactone 25 mg Tablet 25 mg PO DAILY Qty: 30 0RF Protocol: Hold for SBP< HOLD for SBP < : 90 furosemide 20 mg Tablet 20 mg PO DAILY Qty: 30 0RF Protocol: Hold for SBP< HOLD for SBP < : 90 Referrals: Gerhard Scott MD [Physician] - 3 days Print Language: Bahamian
[2025-02-19] MEDS: Lidocaine HCl 1 % MPF 5 ML VIAL 10 ML INFILTRATI (10:50)
--- NOTE | 2025-02-19 10:58 | PC.NURSE ---
patient a&ox3, bedside US to coccyx area performed by provider, lidocaine obtained, wound culture swab at bedside, provider to inject lido to drain area.
--- OUTSIDE RECORDS SUMMARY | 2025-02-19 11:36 | XMS_ITS | Encounter Summary ---
Author Organization [facility] Address [address] [place] [address] Care Team Providers Care Library Consultant Name Role Phone Bennett Barney MD Primary Care Provider [phone] Reason for Visit * Reason Onset Date Comments Appointment 01/24/2025 Encounter Details Date Type Department Care Team ([facility] st Contact Info) Description 01/24/2025 Telephone Lung Screening Program - [address] [address] Neli Alfredo MA Appointment Social History Tobacco Use Types Packs/Day Years Used Date Smoking Tobacco: Every Day Smokeless Tobacco: Current Alcohol Use Standard Drinks/Week Comments No 0 (1 standard drink = 0.6 oz pur e alcohol) Sex and Gender Information Value Date Recorded Sex Assigned at Not on file Legal Sex Male 12:16 AM EST Gender Identity Not on file Sexual Orientation Not on file documented as of this encounter Progress Notes * Aniya Mesa MA - 02/14/2025 3:07 PM EDT Gonzalez Posey contacted the Lung Cancer Screening Program today to reschedule their Lung CancerScreening. The new date and time of the patient's Annual Chest CT is , at Saturday April 05, 2025 730 AM at [facility]. The patient was given the Lung Cancer Screening Program phone number, , to contact if they have any additional questions, concerns or need to reschedule again. * Neli Alfredo MA - 01/24/2025 3:47 PM EDT Called patient left detailed message for call back on insurance information. Also sent letter. documented in this encounter Plan of Treatment Upcoming Encounters Date Type Department Care Team ([facility] st Contact Info) Description 04/05/2025 7:30 AM EDT Appointment [facility] CT Scan [address] [place] [id number] documented as of this encounter Visit Diagnoses Not on filedocumented in this encounter Care Teams Library Consultant Relationship Specialty Start Date End Date Bennett Barney MD [address] [phone] PCP - General Internal Medicine 10/17/20 documented as of this encounter
--- OUTSIDE RECORDS SUMMARY | 2025-02-19 11:36 | XMS_ITS | Clinical Summary ---
Author Organization [facility] [address] [facility] [address] Address [address] [place] [address] Phone Care Team Providers Care Tape Sewer Name Role Phone Bennett Barney MD Primary Care Provider [phone] Encounters Date Type Department Care Team Description 01/24/2025 Telephone Lung Screening Program - [place] [address] [address] Neli Alfredo [place] Appointment from Last 3 Months Medical History Medical History Date Comments Current smoker DX:Current smoke r Family History Relation Name Status Comments Father Mother Social History Tobacco Use Types Packs/Day Years Used Date Smoking Tobacco: Every Day Smokeless Tobacco: Current Alcohol Use Standard Drinks/Week Comments No 0 (1 standard drink = 0.6 oz pur e alcohol) Sex and Gender Information Value Date Recorded Sex Assigned at Not on file Legal Sex Male 12:16 AM EST Gender Identity Not on file Sexual Orientation Not on file Obstetrics History Plan of Treatment Upcoming Encounters Date Type Department Care Team ([facility] st Contact Info) Description 04/05/2025 7:30 AM EDT Appointment [facility] CT Scan [address] [place] [address] Health Maintenance Due Date Last Done Comments DTaP,Tdap,and Td Vaccines (1 - Tdap) 1977 Pneumococcal Vaccine: 50+ Ye ars (1 of 2 - PCV) 1977 Zoster Vaccines (1 of 2) 2008 Abdominal Aortic Aneurysm (A AA) Screen 09/12/2022 Cholesterol Screening (Lipid Panel) 09/12/2022 Colorectal Cancer Screening: Colonoscopy 09/12/2022 Depression Screening 09/12/2022 Hepatitis C Screening 09/12/2022 Medicare Annual Wellness Visit 09/12/2022 Social Influencers of Health Screening 09/12/2022 Falls Risk Assessment 2023 COVID-19 Vaccine (1 - 2023-2 5 season) 2024 Influenza Vaccine (Season Ended) 2025 RSV Immunization Adult Patie nts (1 - 1-dose 75+ series) 2033 HIB Vaccines Aged Out No longer eligi ble based on patient's age to complete this topic HPV Vaccines Aged Out No longer eligi ble based on patient's age to complete this topic Hepatitis A Vaccines Aged Out No long er eligible based on patient's age to complete this topic Hepatitis B Vaccines Aged Out No long er eligible based on patient's age to complete this topic IPV Vaccines Aged Out No longer eligi ble based on patient's age to complete this topic MMR Vaccines Aged Out No longer eligi ble based on patient's age to complete this topic Meningococcal ACWY Vaccine Aged Out N o longer eligible based on patient's age to complete this topic Meningococcal B Vaccine Aged Out No l onger eligible based on patient's age to complete this topic RSV Immunization Patients Un opal 20 months Aged Out No longer eligible b ased on patient's age to complete this topic Varicella Vaccines Aged Out No longer eligible based on patient's age to complete this topic Insurance [facility] - [place] MEDICARE ADVANTAGE Care Teams Tape Sewer Relationship Specialty Start Date End Date Bennett Barney MD [address] [address] PCP - General Internal Medicine 10/17/20
--- OUTSIDE RECORDS SUMMARY | 2025-02-19 11:36 | XMS_ITS | Clinical Summary ---
Author Organization [facility] Address [address] [place] [address] Care Team Providers Care Resident Physician Name Role Phone Bennett Barney MD Primary Care Provider [phone] Allergies Active Allergy Reactions Criticality Noted Date Comments Codeine Other (See Comments) 09/22/2016 Causes confusion Medications Medication Sig Dispensed Refills Start Date End Date Status levETIRAcetam (KEPPRA) 500 MG tablet Take 500 mg by mouth 2 (two) times a day. 0 Active ibuprofen (ADVIL,MOTRIN) 200 MG tablet Take 200 mg by mouth every 6 (six) hours as needed for pain. 0 Active oxyCODONE-acetaminoph en (PERCOCET) 5-325 MG per tablet Take 1 tablet by mouth every 4 (four) hours as needed for pain. 40 tablet 0 09/22/2016 Active aspirin EC 81 MG tablet Take 1 tablet (81 mg total) by mouth 2 (two) times a day. 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 Chronic pain of right knee 09/14/2016 Post-traumatic osteoarthritis of right knee 03/2016 Acute medial meniscus tear of right knee 016 Family History Medical History Relation Name Comments No Sig Med Hx Brother 1 No Sig Med Hx Brother 2 Alzheimer's disease Father Stroke Mother No Sig Med Hx Sister 1 No Sig Med Hx Sister 2 No Sig Med Hx Sister 3 No Sig Med Hx Sister 4 Relation Name Status Comments Brother 1 Alive Brother 2 Alive Father Mother Alive Sister 1 Alive Sister 2 Alive Sister 3 Alive Sister 4 Alive Social History Tobacco Use Types Packs/Day Years Used Date Smoking Tobacco: Every Day Cigarettes 0.5 Started: 09/14/1976 Alcohol Use Standard Drinks/Week Comments No 0 (1 standard drink = 0.6 oz pur e alcohol) Sex and Gender Information Value Date Recorded Sex Assigned at Male 01/19/2019 2:50 PM EDT Gender Identity Not on file Sexual Orientation Not on file Last Filed Vital Signs Vital Sign Reading Time Taken Comments Blood Pressure 113/78 09/22/2016 2:00 PM EST Pulse 68 09/22/2016 2:00 PM EST Temperature 36.7 ??C (98.1 ??F) 09/22/2016 1:35 PM ES T Respiratory Rate 20 09/22/2016 2:00 PM EST Oxygen Saturation 97% 09/22/2016 2:00 PM EST Inhaled Oxygen Concentration - - Weight 93.9 kg (207 lb) 01/12/2017 9:06 AM EDT p t reported Height 185.4 cm (6' 1 ) 01/12/2017 9:06 AM EDT p t reported Body Mass Index 27.31 01/12/2017 9:06 AM EDT Plan of Treatment Health Maintenance Due Date Last Done Comments Hepatitis C Screening 1960 COVID-19 Vaccine (#1) 02/23/1959 Pneumococcal Vaccine (1 of 2 - PCV) 1964 Depression Screening 1970 Preventative Health Evaluation 1976 DTap / Tdap / Td (1 - Tdap) 1977 Colon Cancer Screening (Colonoscopy) 2003 Shingrix-Zoster Vaccine (1 of 2) 2008 Fall Risk Assessment 2023 Influenza Vaccine (#1) 2024 RSV Adult > 60+ Yrs or Pregn ant (1 - 1-dose 75+ series) 2033 Hepatitis B Vaccines Aged Out No long er eligible based on patient's age to complete this topic RSV Ped < 20 months Aged Out No longe r eligible based on patient's age to complete this topic Advance Directives For more information, please contact: [phone] Documents on File Type Date Recorded Patient Building Appraiser Expl anation Advance Directive and Living Will 01/19/2019 2:47 PM Care Teams Resident Physician Relationship Specialty Start Date End Date Bennett Barney MD [address] [place] [id number] PCP - General Internal Medicine 08/03/16
[2025-02-19 12:02] VITALS: BP 102/55; PULSE 81; RESP 18; TEMP 36.7; O2SAT 97
== END 2025-02-19 12:03 | disposition home or self-care (01) ==
PROVIDERS: Emergency Provider Emergency Medicine
DX: K61.1 Rectal abscess (principal)
CPT/HCPCS: 45005; 87070; 87205; 99284; J2003

== ENCOUNTER 2025-02-21 09:31 | Outpatient (AMB) | payer MEDICARE, SELFPAY ==
--- NOTE | 2025-02-21 09:33 | A.OFFVIS_ITS ---
Vital Signs 02/21/25 09:37 Height 6 ft Weight 215 lb 2.738 oz BMI 29.2 BP 116/66 Blood Pressure Location Lt brachial Position Sitting Pulse 66 Intake Visit Reasons: Anal abcess, drain Intake Note: Patient seen at [facility] ED on 02-19-25 for anal abscess. Currently on Amox- potclavulate course. Patient c/o: abscess filled up again, severe pain, bleeding. Warehouse And Receiving Supervisor Required: No Accompanied by: Self / Same As Patient Allergies No Known Allergies Allergy (Verified 02/21/25 09:40) Medication List - Last Reconciled 02/21/25 by Gerhard Scott MD albuterol sulfate 90 mcg/actuation 2 inhalations inhalation Q6H PRN amoxicillin-pot clavulanate 875-125 mg 1 tab PO BID aspirin (Duyen Chewable Low Dose Aspirin) 81 mg PO DAILY atorvastatin 1 tab PO DAILY bisoprolol fumarate 1.25 mg (1/4 x 5 mg) PO DAILY guaifenesin ER (Mucinex) 1,200 mg PO Q12H PRN oxycodone 5 mg PO TID PRN sacubitril-valsartan 24-26 mg (Entresto) 1 tab See Protocol PO BID spironolactone 25 mg See Protocol PO DAILY HPI HPI Anal abcess, drain: Details: 64-year-old male referred by the ED for a perirectal abscess. He apparently went to the ER last 02/19/2025 because of anal pain. He had an I&D done for a perianal abscess at that time by the ER staff. He was instructed to see me in the office. He says that he has noticed recurrence of the swelling, pain and tenderness since yesterday 1 day after the ER visit. He says that they pain and tenderness seems to be more than before. He denies any fever or chills. He denies any drainage. [facility] Medical History Pacemaker Perianal abscess Seizure Surgical History H/O right knee surgery Social History Household Members: Spouse Housing: House Do you presently have visiting nurse or other home services: No Patient Tobacco Use Status: Current everyday Tobacco user Tobacco use type: Cigarette Cigarettes Per Day: 15 Years Smoked: 41 Advance Directives Date on File: 12/19/22 service: No Current occupational status: employed Review of Systems Const Denies chills and Denies fever(s) Card Denies chest pain, Denies dyspnea and Denies dyspnea on exertion Resp Denies cough, Denies dyspnea and Denies dyspnea on exertion GI Denies hematochezia and Denies change in bowel habits Denies hematuria and Denies difficulty urinating Musc Denies back pain and Denies limited range of motion Neuro Denies focal weakness and Denies convulsions Psych Denies depression and Denies mood swings Physical Exam Const General: comfortable and no acute distress Orientation/consciousness: patient oriented x3 Neck Neck: Yes no lymphadenopathy Resp Auscultation: clear to auscultation bilaterally Cardio Rhythm: regular rhythm GI Palpation (GI): Soft to palpation, nontender and no guarding Back/Spine/Pelvis Other: On the right buttock near the sacrococcygeal area just off of the midline is note of a fluctuant mass, about 3 to 4 cm in diameter, very tender to touch consistent with an abscess; 2 very short incisions are seen in the area from his recent I and D but this appeared to have closed up. Neuro General: patient oriented x3 Office Procedures I&D Drain Details: I explained to him the need to proceed with I&D under local anesthesia. I explained the technique of the procedure. I reviewed the risks including but not limited to bleeding, infections and postop pain. I explained to him what to expect postoperatively. He had given consent. He was placed in left lateral decubitus position. The right buttock was retracted with wide tape away from the midline. The abscess was noted on the buttock near the gluteal cleft towards the sacrococcygeal region. This area was prepped and draped. Lidocaine 1% was used for local anesthesia. I made a generous incision in the skin overlying this fluctuant mass with a blade 11. This was carried down through the full-thickness of the skin all the way into the abscess cavity. Large amounts of pus was drained. I probed the cavity with a Q-tip to make sure that we had broken down loculations and that we had completely drain the area. I then applied a light packing using the tip of a small piece of gauze. I covered the area with dry dressings using gauze. He tolerated procedure well. There were no immediate complications. There was minimal blood loss. 13484-Jowisito of Skin Abscess, complex All charges added?: Procedure code (CPT) selection complete Assessment & Plan Assessment & Plan (1) Perianal abscess: Code(s): K61.0 - Anal abscess Category: Medical Plan: Incision and drainage had been done in the ER last February 19, 2025 by the ER staff. However, he notes significant recurrence of swelling, pain and tenderness. He says that the area seemed to have filled up again since yesterday. He describes significant pain and is unable to sit down comfortably Examination does reveal a large abscess on the right buttock near the gluteal cleft. I&D under local anesthesia was therefore done with a much more generous incision in the office. I had instructed him on good wound care including removing the dressings and light packing tomorrow. I will see him in the office next week for a postop visit I have given him a prescription for oxycodone. He is to finish his course of Augmentin. He is comfortable with the plan. Medications: New oxycodone Partial Fill upon patient request. 5 mg PO TID PRN 15 tabs 0RF pain Coding Level of Care Code New Pt Level 3 (33969) Diagnoses Perianal abscess K61.0 CPT Codes I&D Drain - Drain 2: 08700-Neypgmdh of Skin Abscess, complex ([id number])
[2025-02-21 09:37] VITALS: BP 116/66; PULSE 66; BMI 29.2
--- OUTSIDE RECORDS SUMMARY | 2025-02-21 10:19 | XMS_ITS | Clinical Summary ---
Author Organization [facility] [address] [facility] [address] Address [address] [place] [address] Phone Care Team Providers Care Kennel Operator Name Role Phone Bennett Barney MD Primary Care Provider [phone] Encounters Date Type Department Care Team Description 01/24/2025 Telephone Lung Screening Program - [place] [address] [address] Neli Alfredo [place] Appointment from [...] Upcoming Encounters Date Type Department Care Team ([facility] st Contact Info) Description 04/05/2025 7:30 AM EDT Appointment [facility] CT Scan [address] [place] [address] Health Maintenance Due Date Last [...] patient's age to complete this topic Insurance [facility] BLUE CROSS - [place] MEDICARE ADVANTAGE Care Teams Kennel Operator Relationship Specialty Start Date End Date Bennett Barney MD [address] [address] PCP - General Internal Medicine 10/17/20
--- OUTSIDE RECORDS SUMMARY | 2025-02-21 10:19 | XMS_ITS | Clinical Summary ---
Author Organization [facility] Address [address] [place] [address] Care Team Providers Care Insurance Counsel Name Role Phone Bennett Barney MD Primary Care Provider [phone] Allergies Active Allergy Reactions Criticality Noted Date [...] Advance Directives For more information, please contact: [phone] Documents on File Type Date Recorded Patient Workers Compensation Legal Secretary Expl anation Advance Directive and Living Will 01/19/2019 2:47 PM Care Teams Insurance Counsel Relationship Specialty Start Date End Date Bennett Barney MD [address] [place] [id number] PCP - General Internal Medicine 08/03/16
== END 2025-02-21 10:03 | disposition home or self-care (01) ==
LOC: HO.HGS 09:32
PROVIDERS: PCP Emergency Medicine; Visit Provider Surgery
DX: K61.0 Anal abscess (principal)
CPT/HCPCS: 10060; 99203

== ENCOUNTER → 2025-02-21 09:31 | Outpatient (BNVA) | payer MEDICARE, SELFPAY | PROVIDERS: PCP Emergency Medicine; Visit Provider Surgery | DX: K61.0 Anal abscess (principal) | CPT/HCPCS: 10060; 99202 ==

== ENCOUNTER 2025-02-26 09:36 | Outpatient (AMB) | payer MEDICARE, SELFPAY ==
--- NOTE | 2025-02-26 09:39 | A.OFFVIS_ITS ---
Vital Signs 02/26/25 09:47 Height 6 ft Weight 215 lb BMI 29.2 BP 105/59 L Blood Pressure Location Lt brachial Position Sitting Pulse 70 Intake Visit Reasons: s/p I&D buttock abscess Intake Note: Patient is seen in office for one week follow up visit, post perianal abscess. Pt c/o: area is sore from yesterday driving to [place], denies discharge for the last couple of days, has one more day left of antibiotics Pharmacy Affairs Assistant Required: No Accompanied by: Self / Same As Patient Allergies No Known Allergies Allergy (Verified 02/26/25 09:47) HPI HPI s/p I&D buttock abscess: Details: Patient reports he is doing well, will be finishing his course of antibiotics this evening. He reports some mild pain today however he attributes it to the long drive to [place] and back that he did yesterday. He denies any pain when at rest, no longer experiencing any discharge. Reports he has not needed to dress the wound for the past few days. Denies fever, chills. He has no further concerns PFSH Medical History Pacemaker Perianal abscess Seizure Surgical History H/O right knee surgery Social History Household Members: Spouse Housing: House Do you presently have visiting nurse or other home services: No Patient Tobacco Use Status: Current everyday Tobacco user Tobacco use type: Cigarette Cigarettes Per Day: 15 Years Smoked: 41 Advance Directives Date on File: 12/19/22 service: No Current occupational status: employed Review of Systems Const All systems reviewed & are unremarkable except as noted in HPI and below Physical Exam Vital Signs: Last Vital Signs Pulse 70 02/26/25 09:47 BP 105/59 L 02/26/25 09:47 BMI result Body Mass Index 29.2 Const General: comfortable and no acute distress Orientation/consciousness: patient oriented x3 Resp Effort & Inspection: normal respiratory effort and able to speak in complete sentences Skin Other: Incision site at the apex of the gluteal cleft visualized. Wound is intact, no surrounding erythema. There is no discharge noted and no palpable fluid collection. No pain to palpation. No warmth Neuro General: patient oriented x3 Assessment & Plan Assessment & Plan (1) Perianal abscess: Code(s): K61.0 - Anal abscess Category: Medical Plan 64-year-old male seen for follow-up s/p I&D of a perirectal abscess on 02/21/2025 in the office with Dr. Scott. He was started antibiotics, which he will complete the full course this evening. Patient has improved significantly, he has not been experiencing pain or discharge from the site. Denies fever or chills patient is afebrile He does report some pain that he associates to a long drive and sitting on the area for a few hours yesterday. On exam incision site looks improved, he remains intact there was no evidence of fluid collection, discharge, warmth, surrounding erythema and was nontender to palpation. The surrounding area was clean. We will follow-up with the patient in the office in about 3 weeks for further evaluation, he can return sooner with any concerns. Patient agreeable to this plan Coding Level of Care Code Est Pt Level 3 (47198) Diagnoses Perianal abscess K61.0 Time Spent (min) 32
[2025-02-26 09:47] VITALS: BP 105/59; PULSE 70; BMI 29.2
--- OUTSIDE RECORDS SUMMARY | 2025-02-26 10:33 | XMS_ITS | Clinical Summary ---
Author Organization [facility] Address [address] [place] [address] Care Team Providers Care Community Resource Consultant Name Role Phone Bennett Barney MD Primary Care Provider [phone] Allergies Active Allergy Reactions Criticality Noted Date [...] Advance Directives For more information, please contact: [phone] Documents on File Type Date Recorded Patient Railroad Engineer Expl anation Advance Directive and Living Will 01/19/2019 2:47 PM Care Teams Community Resource Consultant Relationship Specialty Start Date End Date Bennett Barney MD [address] [place] [id number] PCP - General Internal Medicine 08/03/16
--- OUTSIDE RECORDS SUMMARY | 2025-02-26 10:33 | XMS_ITS | Clinical Summary ---
Author Organization [facility] [address] [facility] [place] Address [address] [place] [address] Phone Care Team Providers Care Reproduction Artist Name Role Phone Bennett Barney MD Primary Care Provider [phone] Encounters Date Type Department Care Team Description 01/24/2025 Telephone Lung Screening Program - [place] [address] [address] Neli Alfredo [place] Appointment from [...] Upcoming Encounters Date Type Department Care Team ([facility] st Contact Info) Description 04/05/2025 7:30 AM EDT Appointment [facility] CT Scan [address] [place] [address] Health Maintenance Due Date Last [...] patient's age to complete this topic Insurance [facility] [employer] [employer] - [place] MEDICARE ADVANTAGE Care Teams Reproduction Artist Relationship Specialty Start Date End Date Bennett Barney MD [address] [address] PCP - General Internal Medicine 10/17/20
== END 2025-02-26 09:58 | disposition home or self-care (01) ==
LOC: HO.HGS 09:37
PROVIDERS: PCP Emergency Medicine
DX: K61.0 Anal abscess (principal)
CPT/HCPCS: 99024

== ENCOUNTER → 2025-02-26 09:36 | Outpatient (BNVA) | payer MEDICARE, SELFPAY | PROVIDERS: PCP Emergency Medicine | DX: Z98.890 Other specified postprocedural states (principal); Z87.2 Personal history of diseases of the skin and subcutaneous tissue; Z79.2 Long term (current) use of antibiotics | CPT/HCPCS: 99212 ==

== ENCOUNTER 2025-03-19 08:22 | Outpatient (AMB) | payer MEDICARE, SELFPAY ==
--- OUTSIDE RECORDS SUMMARY | 2025-03-19 08:34 | XMS_ITS | Clinical Summary ---
Author Organization [facility] Address [address] [place] [address] Care Team Providers Care Addresser Name Role Phone Bennett Barney MD Primary Care Provider [phone] Allergies Active Allergy Reactions Criticality Noted Date [...] 2008 Fall Risk Assessment 2023 Influenza Vaccine (Season Ended) 2025 RSV Adult > 60+ Yrs or Pregn ant (1 - 1-dose 75+ series) 2033 Hepatitis B Vaccines Aged Out No long er eligible based on patient's age to complete this topic RSV Ped < 20 months Aged Out No longe r eligible based on patient's age to complete this topic Advance Directives For more information, please contact: [phone] Documents on File Type Date Recorded Patient Construction Carpenter Expl anation Advance Directive and Living Will 01/19/2019 2:47 PM Care Teams Addresser Relationship Specialty Start Date End Date Bennett Barney MD [address] [place] [id number] PCP - General Internal Medicine 08/03/16
--- NOTE | 2025-03-19 08:43 | MHC.OFFVIS ---
Vital Signs 03/19/25 08:44 Height 6 ft Weight 218 lb BMI 29.6 BP 100/66 Blood Pressure Location Lt brachial Position Sitting Pulse 72 Intake Visit Reasons: 3wk fuv s/p I&D buttock abscess Intake Note: Pt states, I'm here to have the abscess checked. c/o scab fell off - no drainage, no pain Fruit Harvester Required: No Allergies No Known Allergies Allergy (Verified 02/26/25 09:47) HPI HPI 3wk fuv s/p I&D buttock abscess: Details: Patient reports he is doing well, states he almost called to cancel the appointment because he is not having any pain and has no concerns. Denies fever or chills, pain, discharge PFSH Medical History Pacemaker Perianal abscess Seizure Surgical History H/O right knee surgery Social History Household Members: Spouse Housing: House Do you presently have visiting nurse or other home services: No Patient Tobacco Use Status: Current everyday Tobacco user Tobacco use type: Cigarette Cigarettes Per Day: 15 Years Smoked: 41 Advance Directives Date on File: 12/19/22 service: No Current occupational status: employed Review of Systems Const All systems reviewed & are unremarkable except as noted in HPI and below Physical Exam Vital Signs: Last Vital Signs Pulse 72 03/19/25 08:44 BP 100/66 03/19/25 08:44 BMI result Body Mass Index 29.6 Const General: healthy appearing, comfortable and no acute distress Orientation/consciousness: patient oriented x3 Resp Effort & Inspection: normal respiratory effort and able to speak in complete sentences Skin Other: Incision site appears well healed no evidence of remaining opening of the wound. No surrounding erythema. No palpable fluid collection Neuro General: patient oriented x3 Assessment & Plan Assessment & Plan (1) Perianal abscess: Code(s): K61.0 - Anal abscess Category: Medical Plan 64-year-old male returns for follow-up of perirectal abscess status post I&D. Patient is doing well, has no complaints. Denies pain at the incision site, denies discharge, fever, chills. On exam the incision appears to be healing appropriately there is no surrounding erythema or palpable fluid collection. No concern for infection at this time patient can follow up as needed for further concerns or questions. He is agreeable to this plan Coding Level of Care Code Est Pt Level 2 (37904) Diagnoses Perianal abscess K61.0
[2025-03-19 08:44] VITALS: BP 100/66; PULSE 72; BMI 29.6
== END 2025-03-19 09:29 | disposition home or self-care (01) ==
LOC: HO.HGS 08:23
PROVIDERS: PCP Emergency Medicine
DX: K61.0 Anal abscess (principal)
CPT/HCPCS: 99212

== ENCOUNTER → 2025-03-19 08:22 | Outpatient (BNVA) | payer MEDICARE, SELFPAY | PROVIDERS: PCP Emergency Medicine | DX: K61.0 Anal abscess (principal) | CPT/HCPCS: 99212 ==

== ENCOUNTER 2025-07-16 08:16 | Outpatient (REF) | payer MEDICARE, SELFPAY ==
--- OUTSIDE RECORDS SUMMARY | 2025-05-09 12:45 | XMS_ITS ---
Author Organization [facility] [place] Address [address] [facility] 1 [place] [address] Care Team Providers Care Strategic Solutions Consultant Name Role Phone Kiera Haney Unavailable [phone] REASON FOR VISIT Tele visit medication management Medications Medication SIG (Take, Route, Frequency, Duration) Notes Start Date End Date Status Jardiance 10 MG Tablet 1 tablet Orally O nce a day Active Aspirin 81 81 MG Tablet Chewable 1 tablet Orally Once a day Active Spironolactone 25 MG Tablet 1 tablet Ora lly Once a day Active Metoprolol Succinate ER 25 MG Tablet Extended Release 24 Hour 1 tablet Orally Once a day Active Midodrine HCl 5 MG Tablet 1 tablet Orall y Twice a day Active Atorvastatin Calcium 40 MG Tablet 1 tablet Orally Once a day; Duration: 90 days Active Valsartan 40 MG Tablet 1 tablet Orally T wice a day Active Problems Problem Type SNOMED Code ICD Code Onset Dates Problem Status W/U Status Risk Notes Problem Hyperlipidemia (00740352) Hyperlipidemia, unspecified (E78.5) Active confirmed Encounters Encounter Location Date Provider Diagnosis [address] [address] 05/09/2025 Kieraher Haney Hyperlipidemia, unspecified E78.5 Assessments Encounter Date Diagnosis (ICD Code) Assessment Notes Treatment Notes Treatment Clinical Notes Section Notes 05/09/2025 Hyperlipidemia, unspecified (ICD-10 - E78.5) Plan Of Treatment Medication Medication Name Sig Start Date Stop Date Notes Atorvastatin Calcium 40 MG Tablet 1 tablet Orally Once a day; Duration: 90 days Next Appt Details Provider Name:Kiera Haney, 12/16/2025 09:00:00 AM, [address] [place] [address], [place], [address], [phone] Progress Notes * EVELYN DE LA ROSADOB:[birth year] (64 yo M)Acc No.[id number]:05/09/2025 Patient: EVELYN MACEDO Provider: Boris Haney :1960 A ge:64 Y S ex:Male Date:05/09/2025 Address:[address] [place] [address] Subjective: * Chief Complaints: * T kang visit medication management * Medications: T akingValsartan 40 MG Tablet 1 tablet Orally Twice a day Spironolactone 25 MG Tablet 1 tablet Orally Once a day Midodrine HCl 5 MG Tablet 1 tablet Orally Twice a day Metoprolol Succinate ER 25 MG Tablet Extended Release 24 Hour 1 tablet Orally Once a day Jardiance 10 MG Tablet 1 tablet Orally Once a day Atorvastatin Calcium 40 MG Tablet 1 tablet Orally Once a day Aspirin 81 81 MG Tablet Chewable 1 tablet Orally Once a day Taking Valsartan 40 MG Tablet 1 tablet Orally Twice a day Taking Spironolactone 25 MG Tablet 1 tablet Orally Once a day Taking Midodrine HCl 5 MG Tablet 1 tablet Orally Twice a day Taking Metoprolol Succinate ER 25 MG Tablet Extended Release 24 Hour 1 tablet Orally Once a day Taking Jardiance 10 MG Tablet 1 tablet Orally Once a day Taking Atorvastatin Calcium 40 MG Tablet 1 tablet Orally Once a day Taking Aspirin 81 81 MG Tablet Chewable 1 tablet Orally Once a day Assessment: * Assessment: 1. H yperlipidemia, unspecified - E78.5 Plan: * Treatment: * Electronic signature of Vito Haney on 07/16/2025 at 08:43 AM EDT Sign off status: Pending * Provider: Boris Haney Date: 0 05/09/2025 Generated for Ede bernal/James/Yessi on: 1 08:43 AM EDT
--- OUTSIDE RECORDS SUMMARY | 2025-06-18 09:00 | XMS_ITS ---
Author Organization [facility] [place] Address [address] [facility] 1 [place] [address] Care Team Providers Care Data Migration Consultant Name Role Phone AngelKiera klein Unavailable [phone] Allergies No Known Allergies REASON FOR VISIT Physical, Patient indicates no concern at time of appointment Medications Medication SIG (Take, Route, Frequency, Duration) Notes Start Date End Date Status Jardiance 10 MG Tablet 1 tablet Orally O nce a day Not-Taking Aspirin 81 81 MG Tablet Chewable 1 tablet Orally Once a day Active Metoprolol Succinate ER 25 MG Tablet Extended Release 24 Hour 1 tablet Orally Once a day Not-Taking Atorvastatin Calcium 40 MG Tablet 1 tablet Orally Once a day; Duration: 90 days Active Valsartan 40 MG Tablet 1 tablet Orally T wice a day Active Spironolactone 25 MG Tablet 1 tablet Orally Once a day Active Midodrine HCl 5 MG Tablet 1 tablet Orall y Twice a day Not-Taking Social History Section Notes: Nicotine: Quit last August ETOH: Denies Substances: Denies Vital Signs Blood pressure systolic 110 mm Hg 06/18/20 25 Blood pressure diastolic 60 mm Hg 025 Heart Rate 61 /min 06/18/2025 Respiratory Rate 20 /min 06/18/2025 Weight 216.8 lbs 06/18/2025 Oximetry 95 % 06/18/2025 Weight-kg 98.34 kg 06/18/2025 Encounters Encounter Location Date Provider Diagnosis [facility], [address] [place] [address] 06/18/2025 Kiera Haney Plan Of Treatment Next Appt Details Follow Up: 6 Months, Reason: Labs Provider Name:Kiera Haney, 12/16/2025 09:00:00 AM, [address] [place] [address], [address], [place], [address], [phone] History and Physical Notes * HPI (History of Present Illness) Category Sub-Category Detail Notes Category Not es General Subjective: - Pt denies high blood pressure, reports having low blood pressure and is no longer taking midodrine. - Pt has a pacemaker placed three years ago after experiencing issues with pneumonia; required redoing shortly after placement. - Reports itchiness and spots likely related to contact dermatitis. - Prior prescription for Jardiance discontinued due to contraindications with other medications. - Current medications: Valsartan, spironolactone, aspirin, atorvastatin. - Last colonoscopy in 2011; received but has not used Cologuard test. - had lung surgery; regular visits to [place] for check-ups. - Social history: Uses nicotine pouches, denies use of other substances. - Plan for influenza, COVID-19, and shingles vaccines. Objective: - Pt underwent physical strength tests, all results normal. - Plans to conduct lab tests for diabetes and PSA. - Pt bloodwork was recently done by cardiology department; reports were good but copies weren't received. Assessment: - Contact dermatitis - Monitoring for low blood pressure and pacemaker functioning Plan: - Perform lab tests for diabetes and PSA, consider fasting for accurate results. - Ensure forwarding of recent bloodwork from cardiology department. - Encourage completion of Cologuard test for colon cancer screening. - Schedule vaccinations for flu, COVID-19, and shingles. - Advise on potential irritants for contact dermatitis and consider topical treatment if necessary. Progress Notes * EVELYN DE LA ROSADOB:[birth year] (64 yo M)Acc No.[id number]:06/18/2025 Progress Notes Patient: EVELYN MACEDO Provider: Boris Haney :1960 A ge:64 Y S ex:Male Date:06/18/2025 Address:[address] [place] [address] Subjective: * Chief Complaints: * P hysicalPatient indicates no concern at time of appointment * HPI: G eneral: Subjective: - Pt denies high blood pressure, reports having low blood pressure and is no longer taking midodrine. - Pt has a pacemaker placed three years ago after experiencing issues with pneumonia; required redoing shortly after placement. - Reports itchiness and spots likely related to contact dermatitis. - Prior prescription for Jardiance discontinued due to contraindications with other medications. - Current medications: Valsartan, spironolactone, aspirin, atorvastatin. - Last colonoscopy in 2011; received but has not used Cologuard test. - had lung surgery; regular visits to [place] for check-ups. - Social history: Uses nicotine pouches, denies use of other substances. - Plan for influenza, COVID-19, and shingles vaccines. Objective: - Pt underwent physical strength tests, all results normal. - Plans to conduct lab tests for diabetes and PSA. - Pt bloodwork was recently done by cardiology department; reports were good but copies weren't received. Assessment: - Contact dermatitis - Monitoring for low blood pressure and pacemaker functioning Plan: - Perform lab tests for diabetes and PSA, consider fasting for accurate results. - Ensure forwarding of recent bloodwork from cardiology department. - Encourage completion of Cologuard test for colon cancer screening. - Schedule vaccinations for flu, COVID-19, and shingles. - Advise on potential irritants for contact dermatitis and consider topical treatment if necessary. * Medical History: HTN, HLD Medical History Verified * Surgical History: pacemaker * Ocular Surgical History: * Family History: F ather: . M other: , diagnosed with Heart disease. 3 brother(s) , 4 sister(s) . 2 son(s) - healthy. . * Social History: Social History Verified. N icotine: Quit last August ETOH: Denies Substances: Denies. * Medications: T akingValsartan 40 MG Tablet 1 tablet Orally Twice a day Spironolactone 25 MG Tablet 1 tablet Orally Once a day Aspirin 81 81 MG Tablet Chewable 1 tablet Orally Once a day Atorvastatin [...] Tablet 1 tablet Orally Once a day Not-TakingMidodrine HCl 5 MG Tablet 1 tablet Orally Twice a day Metoprolol Succinate ER 25 MG Tablet Extended Release 24 Hour 1 tablet Orally Once a day Jardiance 10 MG Tablet 1 tablet Orally Once a day Not-Taking Midodrine HCl 5 MG Tablet 1 tablet Orally Twice a day Not-Taking Metoprolol Succinate ER 25 MG Tablet Extended Release 24 Hour 1 tablet Orally Once a day Not-Taking Jardiance 10 MG Tablet 1 tablet Orally Once a day * Allergies: N .KPurnimaAllergies Verified. Objective: * Vitals: B P:110/60mm Hg, HR:61/min, RR:20/min, Oxygen sat %:95%, Wt:216.8lbs, Wt-k.34 kg. Vision Examination: Plan: * Follow Up: 6 Months (Reason: Labs) * Electronic signature of Vito Haney on 07/16/2025 at 08:43 AM EDT Sign off status: Pending * Provider: Boris Haney Date: 0 06/18/2025 Generated for Ede bernal/James/Yessi on: 1 08:43 AM EDT
[2025-07-16 08:30] LABS: MANUAL DIFF FLAG NO
--- OUTSIDE RECORDS SUMMARY | 2025-07-16 08:43 | XMS_ITS | Clinical Summary ---
Author Organization [facility] Address [address] [place] [address] Care Team Providers Care Custody Officer Name Role Phone Bennett Barney MD Primary Care Provider [phone] Allergies Active Allergy Reactions Criticality Noted Date [...] 68 09/22/2016 2:00 PM EST Temperature 36.7 C (98.1 F) 09/22/2016 1:35 PM EST Respiratory Rate 20 09/22/2016 2:00 PM EST [...] Fall Risk Assessment 2023 Influenza Vaccine (#1) 2025 RSV Adult > 60+ Yrs or Pregn ant (1 - 1-dose 75+ series) 2033 Hepatitis B Vaccines Aged Out No long er eligible based on patient's age to complete this topic RSV Ped < 20 months Aged Out No longe r eligible based on patient's age to complete this topic Advance Directives For more information, please contact: [phone] Documents on File Type Date Recorded Patient Support Manager Expl anation Advance Directive and Living Will 01/19/2019 2:47 PM Care Teams Custody Officer Relationship Specialty Start Date End Date Bennett Barney MD [address] [place] [id number] PCP - General Internal Medicine 08/03/16
--- OUTSIDE RECORDS SUMMARY | 2025-07-16 08:43 | XMS_ITS | Patient Health Record ---
Author Organization [facility] [place] Address [address] [facility] 1 [place] [address] Care Team Providers Care Farm Advisor Name Role Phone Kiera Haney Unavailable [phone] Allergies No Known Allergies Reason For Referral No Information Medications Medication SIG (Take, Route, Frequency, Duration) Notes Start Date End Date Status Spironolactone 25 MG Tablet 1 tablet Orally Once a day Active Jardiance 10 MG Tablet 1 tablet Orally O nce a day Not-Taking Aspirin 81 81 MG Tablet Chewable 1 tablet Orally Once a day Active Midodrine HCl 5 MG Tablet 1 tablet Orall y Twice a day Not-Taking Metoprolol Succinate ER 25 MG Tablet Extended Release 24 Hour 1 tablet Orally Once a day Not-Taking Atorvastatin Calcium 40 MG Tablet 1 tablet Orally Once a day; Duration: 90 days Active Valsartan 40 MG Tablet 1 tablet Orally T wice a day Active Social History Section Notes: Nicotine: Quit last August ETOH: Denies Substances: Denies Problems Problem Type SNOMED Code ICD Code Onset Dates Problem Status W/U Status Risk Notes Problem Hyperlipidemia (84150428) Hyperlipidemia, unspecified (E78.5) Active confirmed Vital Signs Heart Rate 61 /min 06/18/2025 Respiratory Rate 20 /min 06/18/2025 Oximetry 95 % 06/18/2025 Blood pressure diastolic 60 mm Hg 06/18/2025 Weight-kg 98.34 kg 06/18/2025 Blood pressure systolic 110 mm Hg 06/18/2025 Weight 216.8 lbs 06/18/2025 Encounters Encounter Location Date Provider Diagnosis [facility] [place] [address] [address] 05/09/2025 Kiera Haney Hyperlipidemia, unspecified E78.5 [facility] [place] 299 [facility] [address] [place] [address] 06/18/2025 Kiera Haney Assessments Encounter Date Diagnosis (ICD Code) Assessment Notes Treatment Notes Treatment Clinical Notes Section Notes 05/09/2025 Hyperlipidemia, unspecified (ICD-10 - E78.5) Plan Of Treatment Next Appt Details Provider Name:Kiera Haney, 12/16/2025 09:00:00 AM, [address] [facility], [address], [place], [address], [phone] Insurance Providers Payer Name Payer Address Payer Phone Subscriber Number Group Number Insured Name Patient Relationship to Insured Coverage Start Date Coverage End Date [employer] [address] [place] [address] [id number] EVELYN DE LA ROSA Self - patient is the insured Medical (General) History Medical History History ICD Code HTN, HLD Surgical History Surgery Date(Month/Year) pacemaker
--- OUTSIDE RECORDS SUMMARY | 2025-07-16 08:44 | XMS_ITS | Clinical Summary ---
Author Organization [facility] [address] [facility] Address [address] [place] [address] Phone Care Team Providers Care Budget Technician Name Role Phone Bennett Barney MD Primary Care Provider [phone] Medical History Medical History Date Comments Current [...] on file Obstetrics History Plan of Treatment Health Maintenance Due Date Last Done Comments Colorectal Cancer Screening: Colonoscopy 1958 Diabetes: Annual GFR (Glomerular Filtration Rate) 1958 Diabetes: Annual Foot Exam 1968 Diabetes: Annual Retina Eye Exam 1968 DTaP,Tdap,and Td Vaccines (1 - Tdap) 1977 Pneumococcal Vaccine: 50+ Years (1 of 2 - PCV) 1977 Zoster Vaccines (1 of 2) 2008 RSV Immunization Adult Patients (1 - Risk 60-74 years 1-dose series) 2018 Abdominal Aortic Aneurysm (AAA) Screen 09/12/2022 Cholesterol Screening (Lipid Panel) 09/12/2022 Hepatitis C Screening 09/12/2022 Medicare Annual Wellness Visit 09/12/2022 Social Influencers of Health Screening 09/12/2022 Falls Risk Assessment 2023 Depression Screening 10/10/2024 COVID-19 Vaccine (2 - 2024-2 6 season) 2025 09/23/2021 Influenza Vaccine (#1) 2025 4, 09/23/2021 Diabetes: Annual Urine Albumin-Creatinine Ratio (uACR) 06/18/2025 Diabetes: Blood Sugar Contro l Test (HGBA1C) 12/16/2025 06/18/2025 HIB Vaccines Aged Out No longer eligi [...] to complete this topic RSV Immunization Patients Under 20 months Aged Out No longer eligible b ased on patient's age to complete this topic Varicella Vaccines Aged Out No longer eligible based on patient's age to complete this topic Procedures Procedure Name Priority Date/Time Associated Diagnosis Comments PROSTATE SPECIFIC ANTIGEN SCREEN Routine 06/18/2025 1:54 PM EDT Special screening for malignant neoplasm of prostate Diabetes mellitus ([facility] V24, [facility] V28) HEMOGLOBIN A1C Routine 06/18/2025 1:54 PM EDT Special screening for malignant neoplasm of prostate Diabetes mellitus ([facility] V24, CMS/HCC V28) from Last 3 Months Results * Prostate specific antigen screen (06/18/2025 1:54 PM EDT) PSA 2.17 0.00 - 4.00 ng/mL LAB CHEMISTRY METHOD 06/18/2025 5:12 PM EDT [facility] Blood Venous blood specimen / Unknown Venipuncture / Unknown 06/18/2025 1:54 PM EDT 06/18/2025 3:14 PM EDT Narrative [facility] - 06/18/2025 5:12 PM EDT The Siemens Advia Centaur Chemiluminescent Immunoassay is used. Results obtained with different assay methods or kits cannot be used interchangeably. Results cannot be interpreted as absolute evidence of the presence or absence of malignant disease. Chitra Davisahan LAB BLOOD ORDERABLES Final Res ult Performing Organization Address City/[facility]/ZIP Co de Phone Number [facility] [address] [place] [address], [place] [phone] * Hemoglobin A1c (06/18/2025 1:54 PM EDT) [facility] Hemoglobin A1C 5.5 <6.5 % LAB CHEMISTRY METHOD 06/18/2025 10:02 PM EDT [facility] Mean Bld Glu Estim. 111 mg/dL LAB CHEMISTRY METHOD 06/18/2025 10:02 PM EDT [facility] Blood Venous blood specimen / Unknown Venipuncture / Unknown 06/18/2025 1:54 PM EDT 06/18/2025 3:13 PM EDT Chitra Davisahan LAB BLOOD ORDERABLES Final Res ult Performing Organization Address [facility]/ZIP Co de Phone Number [facility] [address] [place] [address], [place] [phone] from Last 3 Months Insurance [employer] - [place] MEDICARE ADVANTAGE Care Teams Budget Technician Relationship Specialty Start Date End Date Bennett Barney MD [address] [address] PCP - General Internal Medicine 10/17/20
[2025-07-16 09:34] LABS: Hematocrit 35.8 % (42.0-52.0); Hemoglobin 11.8 g/dl (14.0-18.0); Imm Gran Abs Auto 0.01 X10*3/uL (0.00-0.03); Imm Gran Pct Auto 0.1 % (0.0-0.4); Lymphocytes Absolute Auto 1.6 X10*3/uL (1.2-4.9); Mean Corpuscular HGB Conc 33.0 g/dl (31.0-36.0); Mean Corpuscular Hemoglobin 31.1 pg (27.0-33.0); Mean Corpuscular Volume 94.5 fL (80.0-98.0); NRBC Abs Auto 0.000 X10*3/uL (0.0-0.012); NRBC Pct Auto 0.0 /100WBC (0.0-0.2); Platelet Count 164 X10*3/uL (160-400); Red Blood Count 3.79 X10*6/uL (4.60-5.80); White Blood Count 6.8 X10*3/uL (4.8-10.8)
[2025-07-16 10:17] LABS: HIV Num 1 0.61 S/CO (0.00-0.99); ~HepC Num1 0.05 S/CO (0.00-0.79); ~Hepatitis C Antibody Nonreactive (Nonreactive)
[2025-07-16 10:20] LABS: Alanine Aminotransferase 29 U/L (0-40); Albumin Level 4.2 g/dL (3.5-5.0); Alkaline Phosphatase 89 U/L (39-117); Anion Gap 12 (12-20); Aspartate Amino Transferase 21 U/L (5-37); Blood Urea Nitrogen 27 mg/dL (9-16); Calcium 8.4 mg/dL (8.4-10.2); Carbon Dioxide 24 mmol/L (22-29); Chloride 113 mmol/L (96-108); Estimated Glomerular Filt Rate > 60; Potassium 4.1 mmol/L (3.3-5.1); Sodium 145 mmol/L (135-145); Total Protein 6.4 g/dL (6.5-8.0)
== END 2025-07-16 08:17 | disposition home or self-care (01) ==
LOC: HO.LAB 08:16
PROVIDERS: PCP Nurse Practitioner; Visit Provider Nurse Practitioner
DX: Z11.4 Encounter for screening for human immunodeficiency virus [HIV] (principal); Z13.29 Encounter for screening for other suspected endocrine disorder; Z11.59 Encounter for screening for other viral diseases
CPT/HCPCS: 36415; 80053; 85025; 86803; 87389